=== PATIENT | male | born 1975 | race Hispanic/Latino ===

== ENCOUNTER 2024-09-30 12:08 | Inpatient (IN) | payer BC ==
[~2024-09-30] VITALS: Ht 172.7 cm; Wt 100.0 kg
[~2024-09-30 12:08] MED LIST: AMLO-258 PO; AMOX1TAB16 PO; ASPI-1443 PO; ATOR40TA69 PO; CLOP-31 PO; LISI20TA24 PO; MECL-226 PO; ONDA-243 PO
--- NOTE | 2024-09-30 12:25 | EKG ---
[facility] Test Date: 2024-09-30 Test Time: 12:21:51 Pat Name: ALEX DAVEY Department: ED Room: Gender: M Show Design Supervisor: [id number] : 1975 Requested By: ANANTH HOOK Order Number: [id number] Reading MD: Akil Russell Measurements Intervals Wendel Rate: 69 P: 65 SC: 150 QRS: 42 QRSD: 114 T: 15 QT: 382 QTc: 409 Interpretive Statements Sinus rhythm Inferior infarct, old Compared to ECG 07/08/2024 12:56:03 Myocardial infarct finding now present Electronically Signed On 09-30-2024 14:20:15 TOOL FILER HAND by Akil Russell Please click the below link to view image of tracing.
--- NOTE | 2024-09-30 13:27 | HMCIMG ---
Exam Type: CHEST 1VW Clinical Information: VERTIGO Comparison: None Findings: The lungs are clear of infiltrates. The heart is normal in size. The bony and soft tissue structures of the chest are unremarkable. Impression: Clear lungs.
[2024-09-30] MEDS: LACTATED RINGERS 1000ML 1,000 ML IV ONE (13:41)
[2024-09-30 13:47] LABS: BASOPHILS # (AUTO) 0.03 K/uL (0.00-0.20); BASOPHILS % (AUTO) 0.2 % (0.0-5.0); EOSINOPHILS # (AUTO) 0.04 K/uL (0.00-0.70); EOSINOPHILS % (AUTO) 0.3 % (0.0-8.0); IMMATURE GRANULOCYTE ABSOLUTE 0.06 K/uL (0-1); LYMPHOCYTES # (AUTO) 1.7 K/uL (1.0-4.8); LYMPHOCYTES % (AUTO) 11.9 % (21.0-51.0); MEAN CORPUSCULAR HEMOGLOBIN 30.5 pg (27.0-33.0); MEAN CORPUSCULAR HGB CONC 32.7 g/dL (32.0-36.0); MEAN CORPUSCULAR VOLUME 93.4 fL (79-99); MONOCYTES % (AUTO) 7.3 % (3.0-13.0); NEUTROPHILS # (AUTO) 11.4 K/uL (1.8-7.7); NEUTROPHILS % (AUTO) 79.9 % (40.0-77.0); PLATELET COUNT (AUTO) 325 K/uL (130-400); RED BLOOD CELL COUNT(AUTO) 4.82 MIL/uL (4.50-6.20); WHITE BLOOD COUNT (AUTO) 14.3 K/uL (4.8-10.8)
[2024-09-30 13:57] LABS: INR 0.94 (0.85-1.15); PROTHROMBIN TIME 10.6 SEC (9.6-11.6)
[2024-09-30 13:59] LABS: PARTIAL THROMBOPLASTIN TIME 28.5 SEC (26.3-35.5)
[2024-09-30 14:01] LABS: CREATININE 0.9 mg/dL (0.5-1.3)
[2024-09-30 14:06] LABS: MAGNESIUM 2.1 mg/dL (1.80-2.40)
[2024-09-30 14:18] LABS: B-TYPE NATRIURETIC PEPTIDE 11 pg/mL (0-100)
[2024-09-30] MEDS: mecliZINE HCL 25 MG TABLET PO ONE (14:37)
[2024-09-30 15:02] LABS: APPEARANCE,URINE CLEAR (CLEAR); BILIRUBIN,URINE NEGATIVE (NEGATIVE); COLOR,URINE COLORLESS (YELLOW); GLUCOSE, URINE (UA) NEGATIVE (NEGATIVE); KETONES,URINE NEGATIVE (NEGATIVE); LEUKOCYTE ESTERASE ,URINE NEGATIVE Leu/uL (NEGATIVE); NITRATE,URINE NEGATIVE (NEGATIVE); OCCULT BLOOD,URINE NEGATIVE (NEGATIVE); PH,URINE 6.5 (5.0-8.0); PROTEIN,URINE NEGATIVE (NEGATIVE); UROBILINOGEN,URINE 0.2 mg/dL (0.2-1.0)
[2024-09-30 15:13] LABS: ADD UA MICROSCOPIC NO
--- NOTE | 2024-09-30 16:40 | HMCIMG ---
CT HEAD/BRAIN W/O CONTRAST INDICATION: VERTIGO TECHNIQUE: CT HEAD/BRAIN W/O CONTRAST. CT was performed with one or more of the following dose reduction techniques: Automated exposure control, adjustment of the mA and/or kV according to the patient's size, or use of the iterative reconstruction technique. Comparison: None FINDINGS: The ventricles and extra ventricular CSF spaces are within normal limits. No mass effect, midline shift or herniation. No extra axial collection. No acute intracranial bleed. The visualized paranasal sinuses and mastoid air cells are normally aerated. IMPRESSION: No acute intracranial findings.
--- NOTE | 2024-09-30 17:08 | ERN ---
General Chief Complaint: Dizzy/Light Headed Stated Complaint: DIZZY,MULTIPLE COMPLAINTS Source: patient, family History of Present Illness Initial Comments PATIENT IS A 49-YEAR-OLD MALE COMING IN TO BE EVALUATED FOR VERTIGO. PATIENT STATES THAT HE HAD A RECENT HISTORY OF A CVA THREE MONTHS AGO. STATES THAT HE IMPROVED SIGNIFICANTLY BUT THEN STARTED HAVING URI SYMPTOMS. HE STATES HE HAS BEEN SEEN BY HIS PRIMARY CARE PHYSICIAN AND AN ENT WAS DIAGNOSED WITH RIGHT MAXILLARY SINUS INFECTION AND WAS PENDING A PROCEDURE. HE STATES IT WAS THREE DAYS AGO HIS SYMPTOMS STARTED GETTING WORSE. HE WAS HERE FOR FURTHER EVALUATION. Allergies: Coded Allergies: No Known Drug Allergies (Unverified Allergy, Unknown, 07/08/24) Home Meds Active Scripts Amoxicillin/Potassium Clav (Amox Tr-K Clv 875-125 mg Tab) 875 Mg-125 Mg Tablet, 1 TAB PO BID for 7 Days, #14 TAB 0 Refills Prov:RYLAND GARCIA [employer] SUPERINTENDENT 07/09/24 Amlodipine Besylate (Amlodipine Besylate) 10 Mg Tablet, 1 TAB PO DAILY for 30 Days, #30 TAB 0 Refills Prov:RYLAND GARCIA [employer] SUPERINTENDENT 07/09/24 Lisinopril (Lisinopril) 20 Mg Tablet, 1 TAB PO HS for 30 Days, #30 TAB 0 Refills Prov:RYLAND GARCIA [employer] SUPERINTENDENT 07/09/24 Atorvastatin Calcium (LIPITOR) 80 Mg Tablet, 1 TAB PO HS for 90 Days, #90 TAB 0 Refills Prov:RYLAND GARCIA [employer] SUPERINTENDENT 07/09/24 Aspirin (Aspirin EC) 81 Mg Tablet.dr, 1 TAB PO DAILY for 90 Days, #90 TAB 0 Refills Prov:RYLAND GARCIA COMMAND [employer] SUPERINTENDENT 07/09/24 Clopidogrel Bisulfate (Plavix) 75 Mg Tablet, 1 TAB PO DAILY for 90 Days, #90 TAB 0 Refills Prov:RYLAND GARCIA [employer] SUPERINTENDENT 07/09/24 Reported Medications Meclizine HCl (Meclizine HCl) 12.5 Mg Tablet, 25 MG PO TIDP for dizziness, TAB 07/08/24 Ondansetron (Ondansetron Odt) 4 Mg Tab.rapdis, 1 TAB PO Q4HPRN PRN for nausea/vomiting for 4 Days, #16 TAB 0 Refills 11/23/24 Past Medical History Past Medical History: Anxiety, High Cholesterol, Heart Disease, Hypertension, Stroke Past Surgical History: Tonsillectomy Surgical History Other: BILAT ACL REPAIR. BONE MARROW DONOR ROS Dictation CONSTITUTIONAL: NO CHILLS, NO FEVER, NO WEAKNESS, NO DIAPHORESIS, NO MALAISE. HEAD/FACE: NO SIGNS OF TRAUMA. EENT: NO EYE PAIN, NO BLURRED VISION, NO TEARING, NO DOUBLE VISION, NO EAR PAIN, NO EAR DISCHARGE, NO NOSE PAIN, NO NASAL CONGESTION, NO THROAT PAIN, NO THROAT SWELLING, NO MOUTH PAIN. RESPIRATORY: NO COUGH, NO ORTHOPNEA, NO SOB, NO STRIDOR, NO WHEEZING. CARDIOVASCULAR: NO CHEST PAIN, NO EDEMA, NO PALPITATIONS, NO SYNCOPE. GASTROINTESTINAL/ABDOMINAL: NO ABDOMINAL PAIN, NO CONSTIPATION, NO DIARRHEA, NO NAUSEA, NO VOMITING. GENITOURINARY: NO ABNORMAL DISCHARGE, NO DYSURIA, NO FREQUENT URINATION, NO HEMATURIA. NO COMPLAINTS OF PAIN IN THE GENITALS. MUSCULOSKELETAL: NO BACK PAIN, NO GOUT, NO JOINT PAIN, NO JOINT SWELLING, NO MUSCLE PAIN, NO MUSCLE STIFFNESS, NO NECK PAIN. INTEGUMENTARY: NO CHANGE IN COLOR, NO CHANGE IN HAIR/NAILS, NO DRYNESS, NO LESION, NO LUMPS, NO RASH. NEUROLOGICAL/PSYCH: NO ANXIETY, NOT DEPRESSED, NO EMOTIONAL PROBLEM, NO HEADACHE, NO NUMBNESS, NO PRE-EXISTING DEFICIT, NO HISTORY OF SEIZURES, NO TREMORS, NO WEAKNESS. HEMATOLOGIC/LYMPHATIC: NOT ANEMIC, NO HISTORY OF BLOOD CLOTS, NO APPARENT BLEEDING, NO BRUISING, GLANDS NOT SWOLLEN. ALL SYSTEMS NEGATIVE, EXCEPT NOTED. Physical Exam Physical Exam Dictation VITAL SIGNS: REVIEWED. GENERAL APPEARANCE: ALERT, ORIENTED X3, NO ACUTE DISTRESS, OBESE. HEAD AND FACE: NON-TRAUMATIC. EYES: PERRL, PINK CONJUNCTIVAS, EYELID NO TRAUMA, ANTERIOR CHAMBER CLEAR. EARS: PINNAS INTACT AND NO SIGNS OF TRAUMA OR ERYTHEMA. EAR CANALS CLEAR AND NO DISCHARGE. TMS NO ERYTHEMA. NOSE: NO DISCHARGE, NO BLEEDING. OROPHARYNX: MOUTH NORMAL, TEETH NO CARIES, TONGUE PINK. PHARYNX CLEAR, NO ERYTHEMA. TONSILS NO EXUDATES, NO ABSCESSES NOTED. MUCOUS MEMBRANE MOIST. NECK: SUPPLE, NON-TENDER, NO THYROMEGALY, NO MASSES, NO JVD, NO BRUITS. BREAST: DEFERRED. CHEST: NO TENDERNESS, NO CREPITUS, NO PARADOXICAL MOVEMENT, NO RETRACTIONS. LUNGS: CLEAR, WELL-VENTILATED, SYMMETRIC, NO RALES, NO WHEEZING, NO RHONCHI, NO STRIDOR, GOOD BREATH SOUNDS BILATERALLY. HEART: REGULAR RATE, REGULAR RHYTHM, NO MURMUR, NO GALLOPS. VASCULAR: NO PERIPHERAL EDEMA. ABDOMEN: SOFT, POSITIVE BOWEL SOUNDS, NONDISTENDED, NO GUARDING, NONTENDER, NO REBOUND, NO MASSES NO HEPATOMEGALY, NO SPLENOMEGALY, NO HUANG'S SIGN, NO HERNIAS. RECTAL: DEFERRED. GENITAL: DEFERRED. NEUROLOGICAL: NORMAL SPEECH, GROSS MOTOR FUNCTION INTACT, GROSS SENSORY FUNCTION INTACT. MUSCULOSKELETAL: NECK NONTENDER, FULL RANGE OF MOTION, BACK NONTENDER, FULL RANGE OF MOTION. EXTREMITIES: NONTENDER, FULL RANGE OF MOTION. SKIN: COLOR PINK, DRY, NO TURGOR, NO RASH, NO LACERATIONS, NO ABRASIONS, NO CONTUSIONS. LYMPHATICS: DEFERRED. Results Laboratory and Microbiology Lab and Micro Result Laboratory Tests Test 09/30/24 13:19 09/30/24 14:43 White Blood Count 14.3 K/uL (4.8-10.8) H Red Blood Count 4.82 MIL/uL (4.50-6.20) Hemoglobin 14.7 g/dL (14.0-18.0) Hematocrit 45.0 % (42-54) Mean Corpuscular Volume 93.4 fL (79-99) Mean Corpuscular Hemoglobin 30.5 pg (27.0-33.0) Mean Corpuscular Hemoglobin Concent 32.7 g/dL (32.0-36.0) Red Cell Distribution Width 13.0 % (11.0-15.5) Platelet Count 325 K/uL (130-400) Mean Platelet Volume 9.4 fL (7.5-10.5) Immature Granulocyte % (Auto) 0.4 % (0-1) Neutrophils (%) (Auto) 79.9 % (40.0-77.0) H Lymphocytes (%) (Auto) 11.9 % (21.0-51.0) L Monocytes (%) (Auto) 7.3 % (3.0-13.0) Eosinophils (%) (Auto) 0.3 % (0.0-8.0) Basophils (%) (Auto) 0.2 % (0.0-5.0) Neutrophils # (Auto) 11.4 K/uL (1.8-7.7) H Lymphocytes # (Auto) 1.7 K/uL (1.0-4.8) Monocytes # (Auto) 1.0 K/uL (0.1-1.0) Eosinophils # (Auto) 0.04 K/uL (0.00-0.70) Basophils # (Auto) 0.03 K/uL (0.00-0.20) Absolute Immature Granulocyte (auto 0.06 K/uL (0-1) Nucleated Red Blood Cells 0.0 % (0.0-0.19) Prothrombin Time 10.6 SEC (9.6-11.6) Prothromb Time International Ratio 0.94 (0.85-1.15) Activated Partial Thromboplast Time 28.5 SEC (26.3-35.5) Sodium Level 139 mmol/L (136-145) Potassium Level 4.0 mmol/L (3.5-5.1) Chloride Level 105 mmol/L (101-111) Carbon Dioxide Level 25 mmol/L (21-32) Blood Urea Nitrogen 14 mg/dL (7-18) Creatinine 0.9 mg/dL (0.5-1.3) Glomerular Filtration Rate Calc 104 mL/min (>90) Random Glucose 117 mg/dL (70-105) H Total Calcium 9.2 mg/dL (8.5-10.1) Magnesium Level 2.10 mg/dL (1.80-2.40) Total Creatine Kinase 217 U/L (21-232) # Troponin I High Sensitivity 4 ng/L (4-75) B-Type Natriuretic Peptide 11 pg/mL (0-100) Urine Color COLORLESS (YELLOW) Urine Appearance CLEAR (CLEAR) Urine pH 6.5 (5.0-8.0) Urine Specific [place] 1.005 (1.001-1.031) Urine Protein NEGATIVE mg/dL (NEGATIVE) Urine Glucose (UA) NEGATIVE mg/dL (NEGATIVE) Urine Ketones NEGATIVE mg/dL (NEGATIVE) Urine Occult Blood NEGATIVE (NEGATIVE) Urine Nitrate NEGATIVE (NEGATIVE) Urine Bilirubin NEGATIVE mg/dL (NEGATIVE) Urine Urobilinogen 0.2 mg/dL (0.2-1.0) Urine Leukocyte Esterase NEGATIVE Rowena/uL EKG/XRAY/US/CT/MRI EKG Comment 09/30/2024 TIME 12:21 P.M. VENTRICULAR RATE [address] WAVE ELEVATION OR DEPRESSION CT Scan Comment [id number] [place] [address] IMAGING REPORT Signed PATIENT: ALEX DAVEY MR#: [id number] : 1975 SEX: M AGE: 49 LOCATION: ED ORDER [id number] STATUS: [facility] ER REPORT#: [id number] SERVICE [id number] REASON: VERTIGO ORDERING PHYSICIAN: ANANTH HOOK MD PROCEDURE: HEAD WO - CT HEAD/BRAIN W/O CONTRAST CT HEAD/BRAIN W/O CONTRAST INDICATION: VERTIGO TECHNIQUE: CT HEAD/BRAIN W/O CONTRAST. CT was performed with one or more of the following dose reduction techniques: Automated exposure control, adjustment of the mA and/or kV according to the patient's size, or use of the iterative reconstruction technique. Comparison: None FINDINGS: The ventricles and extra ventricular CSF spaces are within normal limits. No mass effect, midline shift or herniation. No extra axial collection. No acute intracranial bleed. The visualized paranasal sinuses and mastoid air cells are normally aerated. IMPRESSION: No acute intracranial findings. DICTATED BY: ANSHU SUTTON MD DATE: 09/30/24 1637 ELECTRONICALLY SIGNED BY: ANSHU SUTTON MD DATE: 09/30/24 1640 [facility] MDM: DIFFERENTIAL DIAGNOSIS: VERTIGO, CVA, RATIONALE: TESTS CONSIDERED AND ORDERED SECONDARY TO SHARED DECISION MAKING INCLUDE: LABS, ECG AND RADIOLOGY PREVIOUS OUTSIDE RECORDS REVIEWED: OLD ER VISITS. RISK OF COMPLICATION AND/OR MORBIDITY OR MORTALITY OF PATIENT MANAGEMENT: NONE MEDICATIONS-PER MEDICATION RECONCILIATION NEED FOR HOSPITALIZATION: PATIENT DOES MEET CRITERIA FOR HOSPITALIZATION. NEED FOR EMERGENCY MAJOR/MINOR SURGERY: NO THERE ARE NO SOCIAL CONCERNS WITH THIS PATIENT. PRESCRIPTION DRUG MANAGEMENT PRESCRIPTIONS WILL INCLUDE SYMPTOMATIC CARE PATIENT'S PRIOR EXTERNAL MEDICAL RECORDS FROM OTHER ER VISITS WERE REVIEWED BY ME INDICATED. PRIOR TESTING AND RESULTS FROM PREVIOUS VISITS WERE REVIEWED. PRIOR TESTS WERE TAKEN INTO ACCOUNT WITH MEDICAL DECISION MAKING AND RESOURCE UTILIZATION, INDEPENDENT HISTORIAN/HISTORIANS WERE USED TO OBTAIN COMPLETE MEDICAL HISTORY. I INDEPENDENTLY INTERPRETED THE TEST THAT WERE PERFORMED, RESULTS WERE REVIEWED BY ME AND CONSIDERED FINDINGS ON RADIOLOGY IF ORDERED. MEDICAL MANAGEMENT AND EXAMINATION INTERPRETATION DISCUSSIONS WERE HAD BY ME WITH OTHER QUALIFIED HEALTHCARE PROFESSIONALS INDICATED FOR THE PATIENT'S CARE. SHE WILL BE ADMITTED UNDER THE CARE OF HOSPITALIST GROUP FOR ONGOING MANAGEMENT. ED Course Orders Procedure Category Date Status Time Cbc With Differential LAB 09/30/24 Complete 12:13 Prothrombin Time With LAB 09/30/24 Complete INR 12:13 B-Type Natriuretic LAB 09/30/24 Complete Peptide 12:13 Chest 1vw RAD 09/30/24 Resulted 12:13 12 Lead Ekg Tracing- EKG 09/30/24 Resulted Technical 12:13 Lactated Ringers PHA 09/30/24 Complete 1000ml (Lactated 12:30 Magnesium LAB 09/30/24 Complete 12:13 Creatine Kinase, Total LAB 09/30/24 Complete 12:13 Troponin I High LAB 09/30/24 Complete Sensitivity 12:13 Urinalysis Profile LAB 09/30/24 Complete 12:13 Partial LAB 09/30/24 Complete Thromboplastin Time 12:13 Basic Metabolic Panel LAB 09/30/24 Complete 12:13 Meclizine Hcl 25 Mg PHA 09/30/24 Complete (Antivert 25 Mg) 14:30 Ct Head/Brain W/O CT 09/30/24 Resulted Contrast 15:45 Current Medications Medications (Trade) Dose Ordered Sig/Romero Route PRN Reason Start Time Stop Time Status Last Admin Dose Admin Lactated Ringer's 1,000 ml @ 0 mls/hr ONCE ONCE IV 09/30/24 12:30 09/30/24 12:31 DC 09/30/24 13:41 Meclizine HCl (ANTIvert 25 mg) 25 mg ONCE ONCE PO 09/30/24 14:30 09/30/24 14:31 DC 09/30/24 14:37 Vital Signs Date Time Temp Pulse Resp B/P (MAP) Pulse Ox O2 Delivery O2 Flow Rate FiO2 09/30/24 15:30 97.9 68 18 109/65 96 Room Air* 0 21 09/30/24 14:30 97.9 71 18 118/62 96 Room Air* 0 21 09/30/24 13:30 71 18 109/51 98 Room Air* 0 21 09/30/24 12:16 97.9 85 16 118/76 96 Room Air 0 Critical Care Note Comments CRITICAL CARE PROCEDURE NOTE AUTHORIZED AND PERFORMED BY: TOTAL CRITICAL CARE TIME: APPROXIMATELY 36 MINUTES DUE TO A HIGH PROBABILITY OF CLINICALLY SIGNIFICANT, LIFE THREATENING DETERIORATION, THE PATIENT REQUIRED MY HIGHEST LEVEL OF PREPAREDNESS TO INTERVENE EMERGENTLY AND I PERSONALLY SPENT THIS CRITICAL CARE TIME DIRECTLY AND PERSONALLY MANAGING THE PATIENT. THIS CRITICAL CARE TIME INCLUDED OBTAINING A HISTORY; EXAMINING THE PATIENT; PULSE OXIMETRY; ORDERING AND REVIEW OF STUDIES; ARRANGING URGENT TREATMENT WITH DEVELOPMENT OF A MANAGEMENT PLAN; EVALUATION OF PATIENT'S RESPONSE TO TREATMENT; FREQUENT REASSESSMENT; AND, DISCUSSIONS WITH OTHER PROVIDERS. THIS CRITICAL CARE TIME WAS PERFORMED TO ASSESS AND MANAGE THE HIGH PROBABILITY OF IMMINENT, LIFE-THREATENING DETERIORATION THAT COULD RESULT IN MULTI-ORGAN FAILURE. IT WAS EXCLUSIVE OF SEPARATELY BILLABLE PROCEDURES AND TREATING OTHER PATIENTS AND TEACHING TIME. PLEASE SEE MDM SECTION AND THE REST OF THE NOTE FOR FURTHER INFORMATION ON PATIENT ASSESSMENT AND TREATMENT. DX & DISP Disposition: Inpatient Decision to Admit Time: 17:07 Departure Impression: Primary Impression: Vertiginous syndrome Additional Impressions: History of CVA (cerebrovascular accident), Sinusitis Condition: Stable Referrals: SELF,REFERRAL (PCP) ANANTH HOOK MD Sep 30, 2024 17:08
--- NOTE | 2024-09-30 17:14 | NUR ---
does not have medications with him at this time
[2024-09-30] MEDS: 0.9%NACL 1000ML 1,000 ML IV SCH (18:15)
[2024-09-30] MEDS: PANTOPrazole 40 MG TAB DR PO SCH (18:17)
[2024-09-30] MEDS: CEFTRIAXONE 2GM VIAL IVPB SCH (18:17)
--- NOTE | 2024-09-30 18:26 | NUR ---
per Dr. Alan, Dr. Rosales wants MRI done STAT and if neg, there is no need to see pt tonight
[2024-09-30] MEDS ORDERED: guaiFENesin-DM 200/20MG 10ML PO PRN ×2 (18:30→20:00)
[2024-09-30] MEDS ORDERED: hydrALAZine 20MG/ML VIAL IV PRN (18:30)
--- NOTE | 2024-09-30 19:05 | HMCIMG ---
CT CHEST W/O CONTRAST HISTORY: PERSISTENT NON RESOLVING COUGH X 2 WEEKS WITH BRONCHITIS TECHNIQUE: CT CHEST W/O CONTRAST. Coronal and sagittal reformats were obtained. CT was performed with one or more of the following dose reduction techniques: Automated exposure control, adjustment of the mA and/or kV according to the patient's size, or use of the iterative reconstruction technique. FINDINGS: The noncontrast nature this study limits evaluation of the mediastinal structures. Mild airspace consolidation in the bilateral lower lobe and right middle lobe concerning for pneumonia. Bronchiectasis seen in the right lower lobe. There is no pleural effusion or pneumothorax. The heart is normal in size. No pericardial effusion. The aorta is normal in caliber. No bulky mediastinal or hilar lymphadenopathy is seen. There is no acute findings in the visualized upper abdomen. No acute osseous injury is identified. IMPRESSION: Mild airspace consolidation in the bilateral lower lobe and right middle lobe concerning for pneumonia. Bronchiectasis seen in the right lower lobe. There is no pleural effusion or pneumothorax.
[2024-09-30 19:26] LABS: RAPID GROUP A STREP negative (NEGATIVE)
[2024-09-30 19:30] LABS: SARS-CoV-2, RNA, NAAT NEGATIVE SARS CoV-2 (NEGATIVE)
--- NOTE | 2024-09-30 19:31 | HMCIMG ---
MR BRAIN WO CON HISTORY: HX OF RIGHT CEREBELLAR CVA (07/09), 2 DAYS OF PERSISTENT DIZZINESS, R/O CVA TECHNIQUE: Multiplanar multisequence MRI of the brain was performed without contrast. FINDINGS: No restricted diffusion seen to suggest acute infarct. The ventricles and extra ventricular CSF spaces are within normal limits. No mass effect, midline shift or herniation. No extra axial collection. No acute intracranial bleed. Retention cyst/polyps in the right maxillary sinus. IMPRESSION: No acute intracranial findings.
[2024-09-30 19:35] LABS: INFLUENZA TYPE A Negative For Type A (NEGATIVE); INFLUENZA TYPE B Negative For Type B (NEGATIVE)
[2024-09-30 20:39] VITALS: PULSE 63; RESP 18; O2SAT 97
[2024-09-30] MEDS: BUDESONIDE 0.5 MG/2 ML INH IH SCH (20:39)
[2024-09-30] MEDS: SODIUM CHLORIDE 3% FOR INHALATION 4 ML/AMP VIAL.NEB IH ONE (20:46)
[2024-09-30] MEDS: DOXYCYCLINE 100MG+NS 250ML 250 ML IV SCH (20:51)
--- NOTE | 2024-09-30 21:04 | HP ---
[facility] HISTORY AND PHYSICAL Date of Service: Sep 30, 2024 Time of Service: 20:51 HISTORY OF PRESENT ILLNESS: Date of service: 09/30/2024 49-year-old male with underlying history of hypertension, hyperlipidemia, prior history of right cerebellar stroke on 06/2024, history of left vertebral artery stenosis who presented to the ER for further evaluation of two days of persistent dizziness. Patient states that he has been following up with his PCP and he has been having symptoms of productive cough for the past two weeks. He has been on outpatient therapy with Z-Rene and recently saw his PCP again where he received intramuscular shot of antibiotics and oral prednisone. He continues to do poorly with symptoms of bronchitis. Yesterday afternoon, while at work, patient states that he started experiencing symptoms of dizziness. Symptoms became more pronounced stated today and patient reports having unsteady gait with ambulation where he had to hold on to the dong for ambulation. Symptoms were not as severe compared to his previous history of stroke in 06/2024 with vertigo. Patient reports that he has a history of mild chronic vertigo since the stroke. He has been also followed by ENT as outpatient for management of right maxillary sinusitis. Patient is being followed They have suggested surgical treatment for management of sinusitis. Patient states that he was worried about possible stroke given persistent symptoms of dizziness and he presented to the ER for further evaluation. On presentation to the hospital, patient was noted to be afebrile and hemodynamically stable. [place] [address], hemoglobin of 14.7, platelet count of 902427. BMP remarkable for sodium 139, potassium 4.0, creatinine of 0.9. Chest x-ray showed no significant infiltrates. MRI of the brain was obtained which showed no acute stroke. Patient will be admitted for further management of nonresolving bronchitis with suspected community-acquired pneumonia. Patient likely has recrudescence of stroke-like symptoms from underlying pneumonia, dehydration and we will also undergo further workup with MRI brain to rule out acute CVA. Plan of care was discussed with patient and at bedside. REVIEW OF SYSTEMS: CONSTITUTIONAL: Denies fevers, chills, or night sweats. No unintentional weight loss reported. NEUROLOGICAL: Denies headache, amaurosis fugax, motor weakness, sensory deficit, vertigo/spinning sensation, gait abnormalities, or tremors. ENT: No hearing loss, otalgia, otorrhea, rhinitis, rhinorrhea, hoarseness, or sore throat. CARDIOVASCULAR: Denies any exertional angina, dyspnea on exertion, orthopnea, paroxysmal nocturnal dyspnea, palpitations, life-threatening arrhythmias, claudication. PULMONARY: Persistent nonresolving cough, shortness of breath SLEEP: Denies morning headaches, daytime somnolence or napping. Denies difficulty falling asleep, staying asleep, waking from sleep. Denies knowledge of snoring. GASTROINTESTINAL: Denies any type of dysphagia to either liquids or solids. Denies nausea, vomiting, pyrosis, early satiety, abdominal pain, diarrhea, constipation, or changes in stool consistency or caliber. Denies coffee-ground emesis, hematemesis, hematochezia, or melanotic stools. GENITOURINARY: Denies frequency, urgency, nocturia, hematuria or incontinence (Storage/Irritative symptoms.) Low urinary stream, straining to void, urinary intermittency or hesitancy, splitting of the voiding stream, terminal dribbling. ENDOCRINOLOGIC: Denies polyuria, polydipsia, polyphagia or heat/cold intolerances. HEMATOLOGIC: Denies thrombophilia/previous clots, or coagulopathy/bleeding disorders. ONCOLOGIC: Denies personal history of malignancy. DERMATOLOGIC: Denies rashes or pruritus. PSYCHIATRIC: Denies any suicidal or homicidal ideation. Denies hallucinations. PAST MEDICAL HISTORY: Hypertension, hyperlipidemia, history of right cerebellar stroke on 07/09, history of left vertebral artery stenosis per Neurology evaluation on 07/09 PAST SURGICAL HISTORY: Reports having history of tonsillectomy, bilateral ACL repairs of both knees previously PAST SOCIAL HISTORY: Denies smoking, drinks socially, denies illicit drug use, patient works as a mechanical maintenance supervisor FAMILY HISTORY: Family history of heart disease, hypertension in father and mother Allergies: Patient denies known drug allergies Medications: Reports being on amlodipine 10 mg daily, aspirin 81 mg daily, Plavix 75 mg daily, lisinopril 20 mg at bedtime, Lipitor 40 mg daily Coded Allergies: No Known Drug Allergies (Unverified Allergy, Unknown, 07/08/24) PHYSICAL EXAM GENERAL APPEARANCE: The patient is awake, alert, and oriented, in no acute cardiopulmonary distress. NEUROLOGICAL: Cranial nerves II-XII grossly intact. Motor is 5/5 in bilateral upper and lower extremities proximal to distal. No sensory deficits. HEENT: Face is symmetric. Pupils are equal and reactive. Extraocular movements are intact. NECK: Supple. No JVD. No thyromegaly. No submental, submandibular, pre- /postauricular, occipital or supraclavicular lymphadenopathy. CHEST: Normal chest expansion. No Telemetry. LUNGS: Absence of any rales, rhonchi or any wheezing. CARDIOVASCULAR: Regular. S1 and S2 normal. No appreciable rubs, murmurs or gallops. ABDOMEN: Soft, nontender, and nondistended. There is no rebound, voluntary guarding, or rigidity. : Deferred. No Rayo. EXTREMITIES: Non-edematous and not cyanotic. No clubbing. Good capillary refill. SKIN: No skin breakdown. Vital Sign (Last 24 Hours) 09/30/24 09/30/24 18:30 18:38 Temp 97.9 B/P (MAP) 125/71 Pulse Ox 96 LABS: Laboratory: Test 09/30/24 18:10 09/30/24 14:43 09/30/24 13:19 Range/Units Influenza Type A Antigen Negative For Type A NEGATIVE Influenza Type B Antigen Negative For Type B NEGATIVE SARS-CoV-2, RNA, NAAT NEGATIVE SARS CoV-2 NEGATIVE Group A Streptococcus Rapid negative NEGATIVE Urine Color COLORLESS YELLOW Urine Appearance CLEAR CLEAR Urine pH 6.5 5.0-8.0 Urine Specific [place] 1.005 1.001-1.031 Urine Protein NEGATIVE NEGATIVE mg/dL Urine Glucose (UA) NEGATIVE NEGATIVE mg/dL Urine Ketones NEGATIVE NEGATIVE mg/dL Urine Occult Blood NEGATIVE NEGATIVE Urine Nitrate NEGATIVE NEGATIVE Urine Bilirubin NEGATIVE NEGATIVE mg/dL Urine Urobilinogen 0.2 0.2-1.0 mg/dL Urine Leukocyte Esterase NEGATIVE NEGATIVE [place]/uL White Blood Count 14.3 H 4.8-10.8 K/uL Red Blood Count 4.82 4.50-6.20 MIL/uL Hemoglobin 14.7 14.0-18.0 g/dL Hematocrit 45.0 42-54 % Mean Corpuscular Volume 93.4 79-99 fL Mean Corpuscular Hemoglobin 30.5 27.0-33.0 pg Mean Corpuscular Hemoglobin Concent 32.7 32.0-36.0 g/dL Red Cell Distribution Width 13.0 11.0-15.5 % Platelet Count 325 130-400 K/uL Mean Platelet Volume 9.4 7.5-10.5 fL Immature Granulocyte % (Auto) 0.4 0-1 % Neutrophils (%) (Auto) 79.9 H 40.0-77.0 % Lymphocytes (%) (Auto) 11.9 L 21.0-51.0 % Monocytes (%) (Auto) 7.3 3.0-13.0 % Eosinophils (%) (Auto) 0.3 0.0-8.0 % Basophils (%) (Auto) 0.2 0.0-5.0 % Neutrophils # (Auto) 11.4 H 1.8-7.7 K/uL Lymphocytes # (Auto) 1.7 1.0-4.8 K/uL Monocytes # (Auto) 1.0 0.1-1.0 K/uL Eosinophils # (Auto) 0.04 0.00-0.70 K/uL Basophils # (Auto) 0.03 0.00-0.20 K/uL Absolute Immature Granulocyte (auto 0.06 0-1 K/uL Nucleated Red Blood Cells 0.0 0.0-0.19 % Erythrocyte Sedimentation Rate 17 0-20 MM/HR Prothrombin Time 10.6 9.6-11.6 SEC Prothromb Time International Ratio 0.94 0.85-1.15 Activated Partial Thromboplast Time 28.5 26.3-35.5 SEC Sodium Level 139 136-145 mmol/L Potassium Level 4.0 3.5-5.1 mmol/L Chloride Level 105 101-111 mmol/L Carbon Dioxide Level 25 21-32 mmol/L Blood Urea Nitrogen 14 7-18 mg/dL Creatinine 0.9 0.5-1.3 mg/dL Glomerular Filtration Rate Calc 104 >90 mL/min Random Glucose 117 H 70-105 mg/dL Total Calcium 9.2 8.5-10.1 mg/dL Magnesium Level 2.10 1.80-2.40 mg/dL Total Creatine Kinase 217 # 21-232 U/L Troponin I High Sensitivity 4 4-75 ng/L C-Reactive Protein, Quantitative 17.40 H 0.5-3.0 mg/L B-Type Natriuretic Peptide 11 0-100 pg/mL Procalcitonin < 0.05 L 0.05-0.5 ng/mL Current Medications Medications (Trade) Dose Ordered Sig/Romero Route PRN Reason Start Time Stop Time Status Last Admin Dose Admin Albuterol (DUOneb) 1 udvial Q6H PRN IH SHORTNESS OF BREATH 09/30/24 18:30 10/30/24 18:29 Aspirin (Aspirin 81mg Chew Tab) 81 mg DAILY PO 10/01/24 09:00 10/31/24 08:59 Budesonide (Pulmicort 0.5 Mg/2ml) 0.5 mg BIDRESP IH 09/30/24 18:30 10/30/24 18:29 09/30/24 20:39 0.5 MG Ceftriaxone Sodium (Rocephin 2gm Inj) 2 gm Q24H IVPB 09/30/24 18:30 10/10/24 18:29 09/30/24 18:17 2 GM Clopidogrel Bisulfate (plaVIX 75MG) 75 mg DAILY PO 10/01/24 09:00 10/31/24 08:59 Doxycycline Hyclate 250 ml @ 125 mls/hr Q12H IV 09/30/24 20:00 10/10/24 19:59 Guaifenesin/ Dextromethorphan (RobiTUSSin DM 200/20MG 10ML) 10 ml Q6H PRN PO COUGH 09/30/24 18:30 09/30/24 19:45 DC Guaifenesin/ Dextromethorphan (RobiTUSSin DM 200/20MG 10ML) 10 ml Q6H PRN PO COUGH 09/30/24 20:00 10/30/24 19:59 Hydralazine HCl (APRESOLine 20MG INJ) 5 mg Q6H PRN IV ADMINISTER FOR SBP > 160 09/30/24 18:30 10/30/24 18:29 Pantoprazole Sodium (PROTonix 40MG TAB) 40 mg Q24H PO 09/30/24 18:30 10/30/24 18:29 09/30/24 18:17 40 MG Sodium Chloride 1,000 ml @ 80 mls/hr [id number] IV 09/30/24 18:00 10/30/24 17:59 09/30/24 18:15 80 MLS/HR DIAGNOSTICS / RADIOLOGY: SERVICE 1213 REASON: VERTIGO ORDERING PHYSICIAN: ANANTH HOOK MD PROCEDURE: CXR1VW - CHEST 1VW Exam Type: CHEST 1VW Clinical Information: VERTIGO Comparison: None Findings: The lungs are clear of infiltrates. The heart is normal in size. The bony and soft tissue structures of the chest are unremarkable. Impression: Clear lungs. DICTATED BY: ZEINA FONTANA MD DATE: 09/30/241323 ELECTRONICALLY SIGNED BY: ZEINA FONTANA MD DATE: 09/30/241326 ASSESSMENT: Bilateral multifocal community-acquired pneumonia, POA Nonresolving acute bronchitis, POA Failure of outpatient antibiotic therapy, POA Recrudescence of stroke symptoms secondary to underlying pneumonia, POA Prior history of right cerebellar CVA, PO, 06/2024 History of left vertebral artery stenosis, 06/2024, per Dr. Rosales interpretation, POA Hypertension, POA Hyperlipidemia, POA History of dual antiplatelet therapy as outpatient, POA PLAN: Patient will be admitted to cardiac telemetry floor CT chest on further evaluation shows bibasilar bilateral lobe community-acquired pneumonia, we will obtain respiratory culture, flu and COVID testing We will start patient on IV antibiotics with Rocephin/doxycycline, patient reports that he received outpatient Z-Rene therapy and continues to have significant bronchitis Blood pressure remains in the 100s/60s tonight, we will hold lisinopril tonight and resume amlodipine 10 mg daily, orthostatic vitals were noted to be negative Avoid any episodes of hypotension given underlying history of left vertebral artery stenosis We will start patient on IV hydration with NS at 75 mL/hour We will obtain MRI brain tonight to rule out acute CVA, patient's case was discussed with Dr. Rosales with Neurology Patient will continue with antiplatelet therapy with aspirin and Plavix We will have pulmonology evaluate this patient as well All labs will be repeated in the morning Anticipate hospitalization for at least 48-72 hours pending respiratory culture Date of service: 09/30/2024 Plan of care was discussed with patient and at bedside, Satya Alan MD Advanced Care Planning: Which of the following were discussed: Hospice care: Yes __ No _X_ Therapeutic options: Yes _X_ No __ Advance directives: Yes _X_ No __ Other discussions: Discussed with who?: Patient Voluntary nature of this service was explained to the patient? Yes _x_ No __ Amount of time spent: 20 minutes SATYA ALAN MD Sep 30, 2024 21:04
--- NOTE | 2024-09-30 23:26 | NUR ---
PT CARE ASSUMED AT THIS TIME
[2024-10-01] VITALS (10 sets, daily range): BP systolic 118–128; BP diastolic 78–85; PULSE 71–81; RESP 17–20; TEMP 98–98.2; O2SAT 97–99
--- NOTE | 2024-10-01 07:14 | NUR ---
REPORT GIVEN TO ERLINDA TELLEZ AT THIS TIME
[2024-10-01 07:25] LABS: BASOPHILS # (AUTO) 0.04 K/uL (0.00-0.20); BASOPHILS % (AUTO) 0.4 % (0.0-5.0); EOSINOPHILS # (AUTO) 0.06 K/uL (0.00-0.70); EOSINOPHILS % (AUTO) 0.6 % (0.0-8.0); HEMATOCRIT 41.6 % (42-54); IMMATURE GRANULOCYTE ABSOLUTE 0.04 K/uL (0-1); LYMPHOCYTES # (AUTO) 2.4 K/uL (1.0-4.8); LYMPHOCYTES % (AUTO) 22.3 % (21.0-51.0); MEAN CORPUSCULAR HEMOGLOBIN 30.5 pg (27.0-33.0); MEAN CORPUSCULAR HGB CONC 33.2 g/dL (32.0-36.0); MEAN CORPUSCULAR VOLUME 91.8 fL (79-99); MONOCYTES # (AUTO) 1.1 K/uL (0.1-1.0); MONOCYTES % (AUTO) 9.8 % (3.0-13.0); NEUTROPHILS # (AUTO) 7.2 K/uL (1.8-7.7); NEUTROPHILS % (AUTO) 66.5 % (40.0-77.0); PLATELET COUNT (AUTO) 306 K/uL (130-400); RED BLOOD CELL COUNT(AUTO) 4.53 MIL/uL (4.50-6.20); RED CELL DISTRIBUTION WIDTH 13.3 % (11.0-15.5); WHITE BLOOD COUNT (AUTO) 10.8 K/uL (4.8-10.8)
[2024-10-01 07:42] LABS: BILIRUBIN,TOTAL 0.2 mg/dL (0.2-1.0); CREATININE 0.9 mg/dL (0.5-1.3); POTASSIUM 4.3 mmol/L (3.5-5.1); TOTAL PROTEIN, SERUM 6.5 g/dL (6.0-8.3)
[2024-10-01] MEDS: amLODIPine 5 MG TAB PO SCH (08:14)
[2024-10-01] MEDS: cloPIDOgrel 75MG TAB PO SCH (08:14)
[2024-10-01] MEDS: ASPIRIN 81MG CHEW TAB PO SCH (08:15)
--- NOTE | 2024-10-01 10:20 | PN ---
[facility] PROGRESS NOTE Date of Service: Oct 01, 2024 Time of Service: 10:20 SUBJECTIVE: [ ] 49-year-old male with a past medical history of essential hypertension, hyperlipidemia, history of right cerebellar stroke on 06/2024, history of left vertebral artery stenosis was admitted to the cardiac telemetry floor with diagnosis of bilateral multifocal community-acquired pneumonia, none resolving acute bronchitis, failure of outpatient antibiotic therapy and recrudescence of stroke symptoms. Today on bedside evaluation patient was found awake alert and oriented x 3. The power chart reviewed, vital signs, laboratory tests, imaging test and medications have been reviewed. Vitals are stable, afebrile, satting 97% on room air. Leukocytosis resolved, CBC and CMP are stable. Pending respiratory cultures. Reviewed images with patient and patient's , no acute findings. Neurologist was consulted secondary to patient's prior CVA and dizziness. From Neurology standpoint patient is stable, signing off. Continue home medications. Continue IV Rocephin and doxycycline. Starting antihistamines and Flonase. We will follow human resources trainer's recommendations. Patient is a start work with physical therapy for safe discharge planning. REVIEW OF SYSTEMS: CONSTITUTIONAL: Denies fevers, chills, or night sweats. No unintentional weight loss reported. NEUROLOGICAL: Denies headache, amaurosis fugax, motor weakness, sensory deficit, vertigo/spinning sensation, gait abnormalities, or tremors. ENT: No hearing loss, otalgia, otorrhea, rhinitis, rhinorrhea, hoarseness, or sore throat. CARDIOVASCULAR: Denies any exertional angina, dyspnea on exertion, orthopnea, paroxysmal nocturnal dyspnea, palpitations, life-threatening arrhythmias, claudication. PULMONARY: Persistent nonresolving cough, shortness of breath SLEEP: Denies morning headaches, daytime somnolence or napping. Denies difficulty falling asleep, staying asleep, waking from sleep. Denies knowledge of snoring. GASTROINTESTINAL: Denies any type of dysphagia to either liquids or solids. Denies nausea, vomiting, pyrosis, early satiety, abdominal pain, diarrhea, constipation, or changes in stool consistency or caliber. Denies coffee-ground emesis, hematemesis, hematochezia, or melanotic stools. GENITOURINARY: Denies frequency, urgency, nocturia, hematuria or incontinence (Storage/Irritative symptoms.) Low urinary stream, straining to void, urinary intermittency or hesitancy, splitting of the voiding stream, terminal dribbling. ENDOCRINOLOGIC: Denies polyuria, polydipsia, polyphagia or heat/cold intoleran adelaida. HEMATOLOGIC: Denies thrombophilia/previous clots, or coagulopathy/bleeding disorders. ONCOLOGIC: Denies personal history of malignancy. DERMATOLOGIC: Denies rashes or pruritus. PSYCHIATRIC: Denies any suicidal or homicidal ideation. Denies hallucinations. PHYSICAL EXAM GENERAL APPEARANCE: The patient is awake, alert, and oriented, in no acute cardiopulmonary distress. NEUROLOGICAL: Cranial nerves II-XII grossly intact. Motor is 5/5 in bilateral upper and lower extremities proximal to distal. No sensory deficits. HEENT: Face is symmetric. Pupils are equal and reactive. Extraocular movements are intact. NECK: Supple. No JVD. No thyromegaly. No submental, submandibular, pre- /postauricular, occipital or supraclavicular lymphadenopathy. CHEST: Normal chest expansion. No Telemetry. LUNGS: Absence of any rales, rhonchi or any wheezing. CARDIOVASCULAR: Regular. S1 and S2 normal. No appreciable rubs, murmurs or gallops. ABDOMEN: Soft, nontender, and nondistended. There is no rebound, voluntary guarding, or rigidity. : Deferred. No Rayo. EXTREMITIES: Non-edematous and not cyanotic. No clubbing. Good capillary refill. SKIN: No skin breakdown. Vital Signs (last 8hr) Date Time Temp Pulse Resp B/P (MAP) Pulse Ox O2 Delivery O2 Flow Rate FiO2 10/01/24 09:42 84 19 117/67 96 Room Air* 0 21 10/01/24 07:46 74 17 104/66 96 Room Air* 0 21 10/01/24 07:41 78 18 N/A Room Air 0.0 21 10/01/24 06:43 81 18 10/01/24 06:34 78 18 111/70 95 Room Air* 0 21 10/01/24 03:50 76 12 128/75 94 Room Air* 0 21 LABS: Laboratory: Test 10/01/24 07:04 09/30/24 18:10 09/30/24 14:43 09/30/24 13:19 Range/Units White Blood Count 10.8 4.8-10.8 K/uL Red Blood Count 4.53 4.50-6.20 MIL/uL Hemoglobin 13.8 L 14.0-18.0 g/dL Hematocrit 41.6 L 42-54 % Mean Corpuscular Volume 91.8 79-99 fL Mean Corpuscular Hemoglobin 30.5 27.0-33.0 pg Mean Corpuscular Hemoglobin Concent 33.2 32.0-36.0 g/dL Red Cell Distribution Width 13.3 11.0-15.5 % Platelet Count 306 130-400 K/uL Mean Platelet Volume 9.3 7.5-10.5 fL Immature Granulocyte % (Auto) 0.4 0-1 % Neutrophils (%) (Auto) 66.5 40.0-77.0 % Lymphocytes (%) (Auto) 22.3 21.0-51.0 % Monocytes (%) (Auto) 9.8 3.0-13.0 % Eosinophils (%) (Auto) 0.6 0.0-8.0 % Basophils (%) (Auto) 0.4 0.0-5.0 % Neutrophils # (Auto) 7.2 1.8-7.7 K/uL Lymphocytes # (Auto) 2.4 1.0-4.8 K/uL Monocytes # (Auto) 1.1 H 0.1-1.0 K/uL Eosinophils # (Auto) 0.06 0.00-0.70 K/uL Basophils # (Auto) 0.04 0.00-0.20 K/uL Absolute Immature Granulocyte (auto 0.04 0-1 K/uL Nucleated Red Blood Cells 0.0 0.0-0.19 % Sodium Level 142 136-145 mmol/L Potassium Level 4.3 3.5-5.1 mmol/L Chloride Level 109 101-111 mmol/L Carbon Dioxide Level 26 21-32 mmol/L Blood Urea Nitrogen 12 7-18 mg/dL Creatinine 0.9 0.5-1.3 mg/dL Glomerular Filtration Rate Calc 104 >90 mL/min Random Glucose 77 70-105 mg/dL Total Calcium 8.6 8.5-10.1 mg/dL Magnesium Level 2.00 1.80-2.40 mg/dL Total Bilirubin 0.2 0.2-1.0 mg/dL Aspartate Amino Transf (AST/SGOT) 15 10-37 U/L Alanine Aminotransferase (ALT/SGPT) 38 12-78 U/L Alkaline Phosphatase 73 50-136 U/L Total Protein 6.5 6.0-8.3 g/dL Albumin 3.0 L 3.5-5.0 g/dL Influenza Type A Antigen Negative For Type A NEGATIVE Influenza Type B Antigen Negative For Type B NEGATIVE SARS-CoV-2, RNA, NAAT NEGATIVE SARS CoV-2 NEGATIVE Group A Streptococcus Rapid negative NEGATIVE Urine Color COLORLESS YELLOW Urine Appearance CLEAR CLEAR Urine pH 6.5 5.0-8.0 Urine Specific [place] 1.005 1.001-1.031 Urine Protein NEGATIVE NEGATIVE mg/dL Urine Glucose (UA) NEGATIVE NEGATIVE mg/dL Urine Ketones NEGATIVE NEGATIVE mg/dL Urine Occult Blood NEGATIVE NEGATIVE Urine Nitrate NEGATIVE NEGATIVE Urine Bilirubin NEGATIVE NEGATIVE mg/dL Urine Urobilinogen 0.2 0.2-1.0 mg/dL Urine Leukocyte Esterase NEGATIVE NEGATIVE [place]/uL Erythrocyte Sedimentation Rate 17 0-20 MM/HR Prothrombin Time 10.6 9.6-11.6 SEC Prothromb Time International Ratio 0.94 0.85-1.15 Activated Partial Thromboplast Time 28.5 26.3-35.5 SEC Total Creatine Kinase 217 # 21-232 U/L Troponin I High Sensitivity 4 4-75 ng/L C-Reactive Protein, Quantitative 17.40 H 0.5-3.0 mg/L B-Type Natriuretic Peptide 11 0-100 pg/mL Procalcitonin < 0.05 L 0.05-0.5 ng/mL Current Medications Medications (Trade) Dose Ordered Sig/Romero Route PRN Reason Start Time Stop Time Status Last Admin Dose Admin Albuterol (DUOneb) 1 udvial Q6H PRN IH SHORTNESS OF BREATH 09/30/24 18:30 10/30/24 18:29 Amlodipine Besylate (NorvASC 5MG TAB) 10 mg DAILY PO 10/01/24 09:00 10/31/24 08:59 Aspirin (Aspirin 81mg Chew Tab) 81 mg DAILY PO 10/01/24 09:00 10/31/24 08:59 Budesonide (Pulmicort 0.5 Mg/2ml) 0.5 mg BIDRESP IH 09/30/24 18:30 10/30/24 18:29 10/01/24 06:43 0.5 MG Ceftriaxone Sodium (Rocephin 2gm Inj) 2 gm Q24H IVPB 09/30/24 18:30 10/10/24 18:29 09/30/24 18:17 2 GM Clopidogrel Bisulfate (plaVIX 75MG) 75 mg DAILY PO 10/01/24 09:00 10/31/24 08:59 Doxycycline Hyclate 250 ml @ 125 mls/hr Q12H IV 09/30/24 20:00 10/10/24 19:59 10/01/24 08:12 125 MLS/HR Guaifenesin/ Dextromethorphan (RobiTUSSin DM 200/20MG 10ML) 10 ml Q6H PRN PO COUGH 09/30/24 18:30 09/30/24 19:45 DC Guaifenesin/ Dextromethorphan (RobiTUSSin DM 200/20MG 10ML) 10 ml Q6H PRN PO COUGH 09/30/24 20:00 10/30/24 19:59 Hydralazine HCl (APRESOLine 20MG INJ) 5 mg Q6H PRN IV ADMINISTER FOR SBP > 160 09/30/24 18:30 10/30/24 18:29 Pantoprazole Sodium (PROTonix 40MG TAB) 40 mg Q24H PO 09/30/24 18:30 10/30/24 18:29 09/30/24 18:17 40 MG Sodium Chloride 1,000 ml @ 80 mls/hr [id number] IV 09/30/24 18:00 10/30/24 17:59 10/01/24 06:34 80 MLS/HR DIAGNOSTICS / RADIOLOGY: [ ] ASSESSMENT: Suspected Bilateral multifocal acute pneumonitis, POA Nonresolving acute bronchitis, POA Allergic rhinitis, POA Failure of outpatient antibiotic therapy, POA Recrudescence of stroke symptoms secondary to underlying pneumonia, POA Prior history of right cerebellar CVA, PO, 06/2024 History of left vertebral artery stenosis, 06/2024, per Dr. Rosales interpretation, POA Hypertension, POA Hyperlipidemia, POA dual antiplatelet and statin therapy as outpatient, POA PLAN: Continue admission in the cardiac telemetry floor CT chest on further evaluation shows bibasilar bilateral lobe community-acquired pneumonia, Continue IV Rocephin doxycycline Pending respiratory cultures Flu and COVID are negative Blood pressure remains in the 100s/60s tonight, we will hold lisinopril and continue amlodipine 10 mg daily, orthostatic vitals were noted to be negative Avoid any episodes of hypotension given underlying history of left vertebral artery stenosis Discontinue IV fluids Continue heart healthy diet Reviewed MRI brain, ruled out acute CVA, patient's case was discussed with Dr. Rosales with Neurology , signing off Continue antiplatelet therapy with aspirin and Plavix Continue statin therapy Following human resources trainer's recommendations Repeat chest x-ray in the morning Continue IS hourly as tolerated Continue CPT with DuoNebs Monitoring replace electrolytes Start to work with physical therapy for safe discharge planning Start antihistamines and Flonase Monitor a.m. labs PRN Treatment - Add when necessary meds for nausea, vomiting, pain, constipation, insomnia. DVT/GI prophylaxis- Continue Lovenox and Protonix at current doses. Full CODE STATUS This document was generated in part using voice recognition software, occasional wrong word or sound alike substitutions may have occurred due to the inherent limitations of voice recognition software. Read the chart carefully and recognize using context, where the substitutions have occurred. Although every effort was made to edit the content, communications marketing intern and typing errors may occur RYLAND GARCIA Oct 01, 2024 10:20
--- NOTE | 2024-10-01 10:49 | CONS ---
CONSULTATION NOTE Date of Service: Oct 01, 2024 Reason for Consultation: Evaluation of dizziness Requesting Physician: Hospitalist HISTORY OF PRESENT ILLNESS: This is a very nice 49 years old right-handed gentleman that has a past medical history remarkable for dyslipidemia, essential hypertension, sinusitis, left vertebral artery stenosis and a recent cerebellar stroke in June 2024 who was admitted for evaluation and management of productive cough and dizziness. The patient stated that his symptoms started about two weeks ago when the patient started complaining of a productive cough that has been constant since then. The patient was also recently diagnosed with right maxillary sinusitis by an ENT physician. He explains that over the past two days he has had persistent mild dizziness mostly described as lightheadedness but no room spinning sensation. The patient denies having any right-sided left-sided weakness numbness tingling sensation facial droop blurry vision double vision headaches or any other symptomatology. An MRI of the brain without contrast was negative for stroke. REVIEW OF SYSTEMS CONSTITUTIONAL: Denies fever, chills, or fatigue. HEAD/FACE: No signs of trauma. EENT: Denies eye pain, blurred vision, double vision, or light sensitivity. RESPIRATORY: Denies shortness of breath, cough, wheezing CARDIOVASCULAR: Denies chest pain, palpitation, syncope GASTROINTESTINAL/ABDOMINAL: Denies abdominal pain, constipation, diarrhea, nausea or vomiting GENITOURINARY: Denies dysuria or hematuria. MUSCULOSKELETAL: Denies joint pain, tenderness, or trauma. INTEGUMENTARY: Denies rash or itchiness NEUROLOGICAL/PSYCH: dizziness. PAST MEDICAL HISTORY: Dyslipidemia, essential hypertension, sinusitis, left vertebral artery stenosis and a recent cerebellar stroke PAST SURGICAL HISTORY: Noncontributory PAST SOCIAL HISTORY: No tobacco alcohol recreational drug abuse FAMILY HISTORY: No family history of stroke or seizures Coded Allergies: No Known Drug Allergies (Unverified Allergy, Unknown, 07/08/24) PHYSICAL EXAM Mental status: The patient is alert, attentive, and oriented. Speech is clear and fluent with good repetition, comprehension, and naming. Pt recalls 3/3 objects at 5 minutes. Cranial nerves: CN II: Visual campbell are full to confrontation. CN III, IV, : At primary gaze, there is no eye deviation. CN V: Facial sensation is intact to pinprick in all 3 divisions bilaterally. Corneal responses are intact. CN VII: Face is symmetric with normal eye closure and smile. CN VIII: Hearing is normal to rubbing fingers CN IX, X: Palate elevates symmetrically. Phonation is normal. CN XI: Head turning and shoulder shrug are intact CN XII: Tongue is midline with normal movements and no atrophy. Motor: There is no pronator drift of out-stretched arms. Muscle bulk and tone are normal. Strength is full bilaterally. Reflexes: Reflexes are 2+ and symmetric at the biceps, triceps, knees, and ankles. Plantar responses are flexor. Sensory: Light touch, pinprick, position sense, and vibration sense are intact in fingers and toes. Coordination: Rapid alternating movements and fine finger movements are intact. There is no dysmetria on nlpmyl-pf-reay and mpli-epun-juht. There are no abnormal or extraneous movements. Romberg is absent. Gait/Stance: Not evaluated nihss: 0 Vital Sign (Last 24 Hours) 09/30/24 10/01/24 23:55 09:42 Temp 97.7 Pulse 84 Resp 19 B/P (MAP) 117/67 Pulse Ox 96 O2 Delivery Room Air* O2 Flow Rate 0 FiO2 21 LABS: Laboratory: Test 10/01/24 07:04 09/30/24 18:10 09/30/24 14:43 09/30/24 13:19 Range/Units White Blood Count 10.8 4.8-10.8 K/uL Red Blood Count 4.53 4.50-6.20 MIL/uL Hemoglobin 13.8 L 14.0-18.0 g/dL Hematocrit 41.6 L 42-54 % Mean Corpuscular Volume 91.8 79-99 fL Mean Corpuscular Hemoglobin 30.5 27.0-33.0 pg Mean Corpuscular Hemoglobin Concent 33.2 32.0-36.0 g/dL Red Cell Distribution Width 13.3 11.0-15.5 % Platelet Count 306 130-400 K/uL Mean Platelet Volume 9.3 7.5-10.5 fL Immature Granulocyte % (Auto) 0.4 0-1 % Neutrophils (%) (Auto) 66.5 40.0-77.0 % Lymphocytes (%) (Auto) 22.3 21.0-51.0 % Monocytes (%) (Auto) 9.8 3.0-13.0 % Eosinophils (%) (Auto) 0.6 0.0-8.0 % Basophils (%) (Auto) 0.4 0.0-5.0 % Neutrophils # (Auto) 7.2 1.8-7.7 K/uL Lymphocytes # (Auto) 2.4 1.0-4.8 K/uL Monocytes # (Auto) 1.1 H 0.1-1.0 K/uL Eosinophils # (Auto) 0.06 0.00-0.70 K/uL Basophils # (Auto) 0.04 0.00-0.20 K/uL Absolute Immature Granulocyte (auto 0.04 0-1 K/uL Nucleated Red Blood Cells 0.0 0.0-0.19 % Sodium Level 142 136-145 mmol/L Potassium Level 4.3 3.5-5.1 mmol/L Chloride Level 109 101-111 mmol/L Carbon Dioxide Level 26 21-32 mmol/L Blood Urea Nitrogen 12 7-18 mg/dL Creatinine 0.9 0.5-1.3 mg/dL Glomerular Filtration Rate Calc 104 >90 mL/min Random Glucose 77 70-105 mg/dL Total Calcium 8.6 8.5-10.1 mg/dL Magnesium Level 2.00 1.80-2.40 mg/dL Total Bilirubin 0.2 0.2-1.0 mg/dL Aspartate Amino Transf (AST/SGOT) 15 10-37 U/L Alanine Aminotransferase (ALT/SGPT) 38 12-78 U/L Alkaline Phosphatase 73 50-136 U/L Total Protein 6.5 6.0-8.3 g/dL Albumin 3.0 L 3.5-5.0 g/dL Influenza Type A Antigen Negative For Type A NEGATIVE Influenza Type B Antigen Negative For Type B NEGATIVE SARS-CoV-2, RNA, NAAT NEGATIVE SARS CoV-2 NEGATIVE Group A Streptococcus Rapid negative NEGATIVE Urine Color COLORLESS YELLOW Urine Appearance CLEAR CLEAR Urine pH 6.5 5.0-8.0 Urine Specific [place] 1.005 1.001-1.031 Urine Protein NEGATIVE NEGATIVE mg/dL Urine Glucose (UA) NEGATIVE NEGATIVE mg/dL Urine Ketones NEGATIVE NEGATIVE mg/dL Urine Occult Blood NEGATIVE NEGATIVE Urine Nitrate NEGATIVE NEGATIVE Urine Bilirubin NEGATIVE NEGATIVE mg/dL Urine Urobilinogen 0.2 0.2-1.0 mg/dL Urine Leukocyte Esterase NEGATIVE NEGATIVE [place]/uL Erythrocyte Sedimentation Rate 17 0-20 MM/HR Prothrombin Time 10.6 9.6-11.6 SEC Prothromb Time International Ratio 0.94 0.85-1.15 Activated Partial Thromboplast Time 28.5 26.3-35.5 SEC Total Creatine Kinase 217 # 21-232 U/L Troponin I High Sensitivity 4 4-75 ng/L C-Reactive Protein, Quantitative 17.40 H 0.5-3.0 mg/L B-Type Natriuretic Peptide 11 0-100 pg/mL Procalcitonin < 0.05 L 0.05-0.5 ng/mL DIAGNOSTICS / RADIOLOGY: MRI brain: Negative for strokes ASSESSMENT / PLAN: 1).- Dizziness - based on the patient's history and physical examination it is likely this patient has lightheadedness mostly secondary to volume depletion due to bronchitis and sinusitis. Other possible diagnosis includes peripheral vertigo caused by vestibulitis due to upper respiratory infection/sinusitis. The patient does not describe having room spinning sensation and for that reason vertigo is less likely. Continue patient on current therapy IV fluids and blood pressure management by primary team. Continue IV antibiotic therapy by primary team. Thank you for your consultation. I will sign off LESLI HERNDON MD Oct 01, 2024 10:48
[2024-10-01] MEDS: IpraTROPium/alBUTERol SULFATE 3 ML SOLUTION IH PRN (11:17)
--- NOTE | 2024-10-01 11:38 | CONS ---
[facility] CONSULTATION NOTE Date Patient Seen: Oct 01, 2024 Time of Visit: 11:27 Supervising Physician: [ ] Dr. Felicia Escalante Reason for Consultation: [ ] Respiratory failure, pneumonia Primary Care Physician: [ ] Outpatient Specialists: [ ] Inpatient Consults: [ ] BIS, neurology PROBLEM LIST: Bilateral multifocal community-acquired pneumonia, POA Nonresolving acute bronchitis, POA Failure of outpatient antibiotic therapy, POA Recrudescence of stroke symptoms secondary to underlying pneumonia, POA Prior history of right cerebellar CVA, PO, 06/2024 History of left vertebral artery stenosis, 06/2024, per Dr. Rosales interpretation, POA Hypertension, POA Hyperlipidemia, POA History of dual antiplatelet therapy as outpatient, POA HPI: 49-year-old male with underlying history of hypertension, hyperlipidemia, prior history of right cerebellar stroke on 06/2024, history of left vertebral artery stenosis who presented to the ER for further evaluation of two days of persistent dizziness. Patient states that he has been following up with his PCP and he has been having symptoms of productive cough for the past two weeks. He has been on outpatient therapy with [facility] and recently saw his PCP again where he received intramuscular shot of antibiotics and oral prednisone. He continues to do poorly with symptoms of bronchitis. Yesterday afternoon, while at work, patient states that he started experiencing symptoms of dizziness. Symptoms became more pronounced stated today and patient reports having unsteady gait with ambulation where he had to hold on to the dong for ambulation. Symptoms were not as severe compared to his previous history of stroke in 06/2024 with vertigo. Patient reports that he has a history of mild chronic vertigo since the stroke. He has been also followed by ENT as outpatient for management of right maxillary sinusitis. Patient is being followed They have suggested surgical treatment for management of sinusitis. Patient states that he was worried about possible stroke given persistent sympto ms of dizziness and he presented to the ER for further evaluation. On presentation to the hospital, patient was noted to be afebrile and hemodynamically stable. Chest x-ray showed no significant infiltrates. MRI of the brain was obtained which showed no acute stroke. Patient had a CT scan of the chest which shows bilateral lower lobe and right middle lobe pneumonia. For this reason we are consulted. Patient is seen sitting up in the ED stretcher with no signs of acute distress. Patient denies chest discomfort, chest pain, or shortness on breath with exertion. Patient remains on room air with an O2 sat of 96%. No acute changes reported overnight. Patient did report lightheadedness which may be secondary to volume depletion. It appears patient may be suffering from bronchitis and sinusitis. Patient does report he takes lisinopril for hypertension. Informed patient that ALEXA inhibitors are very well known for causing cough. CT scan of the chest was reviewed and patient does have very minimal infiltrates. Recommend continue current antibiotics treatment. Duo nebs as needed. Hold lisinopril for now. Given his history of stroke recommend speech therapy evaluation. Repeat a.m. labs. PAST MEDICAL HX: see above PAST SURGICAL HX: noncontributory SOCIAL HISTORY: No tobacco, ETOH, or illicit drug use Coded Allergies: No Known Drug Allergies (Unverified Allergy, Unknown, 07/08/24) REVIEW OF SYSTEMS: 12 point ROS reviewed with patient. Pertinent positives mentioned above. Otherwise negative. PHYSICAL EXAM: GENERAL: alert, weak, awake oriented x 3 HEENT: EOMI, Sclera non icteric, moist mucosa NECK: Supple, no JVD, trachea midline LUNGS: Clear breath sounds bilaterally. No wheezes HEART: Regular rate and rhythm. Normal S1 and S2, without murmurs ABD: Abdomen soft, nontender. Bowel sounds present EXT: No clubbing cyanosis or edema NEURO: Alert and oriented to person, follows commands Vital Signs (last 8hr) Date Time Temp Pulse Resp B/P (MAP) Pulse Ox O2 Delivery O2 Flow Rate FiO2 10/01/24 09:42 84 19 117/67 96 Room Air* 0 21 10/01/24 07:46 74 17 104/66 96 Room Air* 0 21 10/01/24 07:41 78 18 N/A Room Air 0.0 21 10/01/24 06:43 81 18 10/01/24 06:34 78 18 111/70 95 Room Air* 0 21 10/01/24 03:50 76 12 128/75 94 Room Air* 0 21 LABS: Hematology Labs: Test 10/01/24 07:04 09/30/24 13:19 Range/Units White Blood Count 10.8 4.8-10.8 K/uL Red Blood Count 4.53 4.50-6.20 MIL/uL Hemoglobin 13.8 L 14.0-18.0 g/dL Hematocrit 41.6 L 42-54 % Mean Corpuscular Volume 91.8 79-99 fL Mean Corpuscular Hemoglobin 30.5 27.0-33.0 pg Mean Corpuscular Hemoglobin Concent 33.2 32.0-36.0 g/dL Red Cell Distribution Width 13.3 11.0-15.5 % Platelet Count 306 130-400 K/uL Mean Platelet Volume 9.3 7.5-10.5 fL Immature Granulocyte % (Auto) 0.4 0-1 % Neutrophils (%) (Auto) 66.5 40.0-77.0 % Lymphocytes (%) (Auto) 22.3 21.0-51.0 % Monocytes (%) (Auto) 9.8 3.0-13.0 % Eosinophils (%) (Auto) 0.6 0.0-8.0 % Basophils (%) (Auto) 0.4 0.0-5.0 % Neutrophils # (Auto) 7.2 1.8-7.7 K/uL Lymphocytes # (Auto) 2.4 1.0-4.8 K/uL Monocytes # (Auto) 1.1 H 0.1-1.0 K/uL Eosinophils # (Auto) 0.06 0.00-0.70 K/uL Basophils # (Auto) 0.04 0.00-0.20 K/uL Absolute Immature Granulocyte (auto 0.04 0-1 K/uL Nucleated Red Blood Cells 0.0 0.0-0.19 % Erythrocyte Sedimentation Rate 17 0-20 MM/HR Chemistry Labs: Test 10/01/24 07:04 09/30/24 13:19 Range/Units Sodium Level 142 136-145 mmol/L Potassium Level 4.3 3.5-5.1 mmol/L Chloride Level 109 101-111 mmol/L Carbon Dioxide Level 26 21-32 mmol/L Blood Urea Nitrogen 12 7-18 mg/dL Creatinine 0.9 0.5-1.3 mg/dL Glomerular Filtration Rate Calc 104 >90 mL/min Random Glucose 77 70-105 mg/dL Total Calcium 8.6 8.5-10.1 mg/dL Magnesium Level 2.00 1.80-2.40 mg/dL Total Bilirubin 0.2 0.2-1.0 mg/dL Aspartate Amino Transf (AST/SGOT) 15 10-37 U/L Alanine Aminotransferase (ALT/SGPT) 38 12-78 U/L Alkaline Phosphatase 73 50-136 U/L Total Protein 6.5 6.0-8.3 g/dL Albumin 3.0 L 3.5-5.0 g/dL Total Creatine Kinase 217 # 21-232 U/L Troponin I High Sensitivity 4 4-75 ng/L C-Reactive Protein, Quantitative 17.40 H 0.5-3.0 mg/L B-Type Natriuretic Peptide 11 0-100 pg/mL Procalcitonin < 0.05 L 0.05-0.5 ng/mL Coagulation Labs: Test 09/30/24 13:19 Range/Units Prothrombin Time 10.6 9.6-11.6 SEC Prothromb Time International Ratio 0.94 0.85-1.15 Activated Partial Thromboplast Time 28.5 26.3-35.5 SEC DIAGNOSTICS / RADIOLOGY RESULTS: PATIENT: ALEX DAVEY MR#: [id number] : 1975 SEX: M AGE: 49 [facility] STATUS: ADM IN [facility] REPORT#: [id number] SERVICE 56 REASON: PERSISTENT NON RESOLVING COUGH X 2 WEEKS WITH BRONCHITIS ORDERING PHYSICIAN: AJIT SOLER MD PROCEDURE: CHEST WO - CT CHEST W/O CONTRAST CT CHEST W/O CONTRAST HISTORY: PERSISTENT NON RESOLVING COUGH X 2 WEEKS WITH BRONCHITIS TECHNIQUE: CT CHEST W/O CONTRAST. Coronal and sagittal reformats were obtained. CT was performed with one or more of the following dose reduction techniques: Automated exposure control, adjustment of the mA and/or kV according to the patient's size, or use of the iterative reconstruction technique. FINDINGS: The noncontrast nature this study limits evaluation of the mediastinal structures. Mild airspace consolidation in the bilateral lower lobe and right middle lobe concerning for pneumonia. Bronchiectasis seen in the right lower lobe. There is no pleural effusion or pneumothorax. The heart is normal in size. No pericardial effusion. The aorta is normal in caliber. No bulky mediastinal or hilar lymphadenopathy is seen. There is no acute findings in the visualized upper abdomen. No acute osseous injury is identified. IMPRESSION: Mild airspace consolidation in the bilateral lower lobe and right middle lobe concerning for pneumonia. Bronchiectasis seen in the right lower lobe. There is no pleural effusion or pneumothorax. DICTATED BY: ANSHU SUTTON MD DATE: 09/30/241901 ELECTRONICALLY SIGNED BY: ANSHU SUTTON MD DATE: 09/30/241904 PLAN Supplemental oxygen as needed Duo nebs as needed Continue Rocephin Continue doxycycline Hold lisinopril Speech therapy evaluation Repeat a.m. labs NEURO: Minimize central acting medications as possible. Maintain fall precautions, adequate lighting during the day PULMONARY: Supplemental 02 as needed. Maintain aspiration precautions at all times CARDIOVASCULAR: Follow hemodynamics. Vital signs per facility protocol GI & NUTRITION: Continue with nutritional support. Continue stool softeners and laxatives as needed. KIDNEYS & ELECTROLYTES: Strict monitoring of intake, output and overall fluid balance. Avoid nephrotoxic medications to the extent possible. Medications to be dosed according to renal function. Monitor electrolytes and replace as needed ENDOCRINE: Maintain blood glucose between 100-180 at all times. Hypoglycemia protocol in place INFECTIOUS DISEASE: Trend temperature, WBC and procalcitonin level Follow cultures, deescalate antibiotics as soon as possible. Panculture if new onset fever ONCOLOGY/HEMATOLOGY/COAGULATION: Monitor for s/s of bleeding Monitor hemoglobin, coagulation studies as needed SKIN: Pressure ulcer prevention per facility protocol Specialty mattress ORTHO/REHAB: Continue PT/OT Prophylaxis: Continue GI and DVT prophylaxis Code Status: Full Resuscitation Disposition: As per attending. Other: Total patient care time exceeds 35 minutes excluding all procedures. ATTESTATION BY PHYSICIAN The patient has been seen and evaluated, the case has been discussed with the OFF TRACK BETTING MANAGER, I agree with the clinical findings and plan of care. Antonio Escalante MD, ECTOR N OFF TRACK BETTING MANAGER Oct 01, 2024 11:38
[2024-10-01] MEDS: ceTIRIzine HCL 5 MG TABLET PO SCH (14:42)
--- NOTE | 2024-10-01 17:07 | NUR ---
gave report to Kelly Dasilva lvn no concerns voiced
--- NOTE | 2024-10-01 18:17 | NUR ---
INITIAL/DCP HOME Met w pt and spouse this afternoon to discuss dcp. Pt admitted w PNA. EC spouse Aby Donaldson [phone]. Preferred pharmacy [facility] on [address]. Pt lives at home w his and 17 yo son. Pt is independent w ambulation and ADLs. DME includes a cane and walker. Discharge goal is to return home. Addendum: 10/01/24 at 1820 by KENYETTA BUTLER CM Amended: Links added.
[2024-10-01] MEDS: fluTICasone proPIONate 50MCG/SPRAY 16 GM BOTTLE EN SCH (20:57)
[2024-10-01] MEDS: monteLUKAST sodIUM 10 MG TAB PO SCH (20:57)
[2024-10-01] MEDS: ENOXAPARIN SODIUM 30 MG/0.3 ML SQ SCH (20:58)
[2024-10-02] VITALS (14 sets, daily range): BP systolic 107–130; BP diastolic 69–77; PULSE 65–86; RESP 16–20; TEMP 97.8–98.6; O2SAT 94–97
[2024-10-02 05:18] LABS: BASOPHILS # (AUTO) 0.06 K/uL (0.00-0.20); BASOPHILS % (AUTO) 0.7 % (0.0-5.0); EOSINOPHILS # (AUTO) 0.13 K/uL (0.00-0.70); EOSINOPHILS % (AUTO) 1.6 % (0.0-8.0); HEMATOCRIT 39.4 % (42-54); IMMATURE GRANULOCYTE ABSOLUTE 0.03 K/uL (0-1); LYMPHOCYTES # (AUTO) 2.4 K/uL (1.0-4.8); LYMPHOCYTES % (AUTO) 29.7 % (21.0-51.0); MEAN CORPUSCULAR HEMOGLOBIN 30.4 pg (27.0-33.0); MEAN CORPUSCULAR HGB CONC 32.7 g/dL (32.0-36.0); MEAN CORPUSCULAR VOLUME 92.7 fL (79-99); MONOCYTES # (AUTO) 0.8 K/uL (0.1-1.0); MONOCYTES % (AUTO) 9.3 % (3.0-13.0); NEUTROPHILS # (AUTO) 4.7 K/uL (1.8-7.7); NEUTROPHILS % (AUTO) 58.3 % (40.0-77.0); PLATELET COUNT (AUTO) 299 K/uL (130-400); RED BLOOD CELL COUNT(AUTO) 4.25 MIL/uL (4.50-6.20); RED CELL DISTRIBUTION WIDTH 13.5 % (11.0-15.5); WHITE BLOOD COUNT (AUTO) 8.1 K/uL (4.8-10.8)
--- NOTE | 2024-10-02 09:27 | HMCIMG ---
CHEST 1VW REASON: pneumonia COMPARISON: 09/30/2024 FINDINGS: There is platelike atelectasis in both lung bases. Lungs are otherwise clear. Heart size is normal with no vascular congestion. There are no pleural effusions. Mediastinum and bony thorax appear unremarkable. IMPRESSION: 1. Platelike atelectasis in both lung bases.
--- NOTE | 2024-10-02 14:38 | PN ---
[facility] PROGRESS NOTE Date of Service: Oct 02, 2024 Time of Service: 14:[address] Zuniga SUBJECTIVE: [ ] 10/01 49-year-old male with a past medical history of essential hypertension, hyperlipidemia, history of right cerebellar stroke on 06/2024, history of left vertebral artery stenosis was admitted to the cardiac telemetry floor with diagnosis of bilateral multifocal community-acquired pneumonia, none resolving acute bronchitis, failure of outpatient antibiotic therapy and recrudescence of stroke symptoms. Today on bedside evaluation patient was found awake alert and oriented x 3. The power chart reviewed, vital signs, laboratory tests, imaging test and medications have been reviewed. Vitals are stable, afebrile, satting 97% on room air. Leukocytosis resolved, CBC and CMP are stable. Pending respiratory cultures. Reviewed images with patient and patient's , no acute findings. Neurologist was consulted secondary to patient's prior CVA and dizziness. From Neurology standpoint patient is stable, signing off. Continue home medications. Continue IV Rocephin and doxycycline. Starting antihistamines and Flonase. We will follow asbestos cement sheet supervisor's recommendations. Patient is a start work with physical therapy for safe discharge planning. 10/02 patient was seen by nurse practitioner and physician during rounding in room 410. Patient was evaluated by asbestos cement sheet supervisor and at this moment patient is denying any shortness of breaths with exertion any chest pain or any discomfort. Patient is on room air satting 96%. Patient was reporting lightheadedness which was probably secondary to dehydration. As per asbestos cement sheet supervisor patient appears to be suffering from bronchitis and sinusitis. Patient takes lisinopril hypertension and unfortunately ALEXA inhibitors a very well known for causing chronic cough. We will hold lisinopril for now and re-evaluate the patient. Duo nebs as needed. Patient was also evaluated by neurologist and at this moment he will signed off. Neurologist also believes that the lightheadedness that is mostly secondary to volume depletion due to bronchitis and sinusitis. We are pending final sputum culture. Urine culture final is negative. Labs and radiology was reviewed by [employer] INTERFACE DEVELOPER. Most recent chest x-ray 10/02/2024 showed platelike atelectasis in both lungs bases. Patient is on doxycycline and Rocephin. We will continue to monitor patient in the meantime. A.m. labs. REVIEW OF SYSTEMS: CONSTITUTIONAL: Denies fevers, chills, or night sweats. No unintentional weight loss reported. NEUROLOGICAL: Denies headache, amaurosis fugax, motor weakness, sensory defi cit, vertigo/spinning sensation, gait abnormalities, or tremors. ENT: No hearing loss, otalgia, otorrhea, rhinitis, rhinorrhea, hoarseness, or sore throat. CARDIOVASCULAR: Denies any exertional angina, dyspnea on exertion, orthopnea, paroxysmal nocturnal dyspnea, palpitations, life-threatening arrhythmias, claudication. PULMONARY: Persistent nonresolving cough which has improved from the previous day. Denies any shortness of breath SLEEP: Denies morning headaches, daytime somnolence or napping. Denies difficulty falling asleep, staying asleep, waking from sleep. Denies knowledge of snoring. GASTROINTESTINAL: Denies any type of dysphagia to either liquids or solids. Denies nausea, vomiting, pyrosis, early satiety, abdominal pain, diarrhea, constipation, or changes in stool consistency or caliber. Denies coffee-ground emesis, hematemesis, hematochezia, or melanotic stools. GENITOURINARY: Denies frequency, urgency, nocturia, hematuria or incontinence (Storage/Irritative symptoms.) Low urinary stream, straining to void, urinary intermittency or hesitancy, splitting of the voiding stream, terminal dribbling. ENDOCRINOLOGIC: Denies polyuria, polydipsia, polyphagia or heat/cold intolerances. HEMATOLOGIC: Denies thrombophilia/previous clots, or coagulopathy/bleeding disorders. ONCOLOGIC: Denies personal history of malignancy. DERMATOLOGIC: Denies rashes or pruritus. PSYCHIATRIC: Denies any suicidal or homicidal ideation. Denies hallucinations. PHYSICAL EXAM GENERAL APPEARANCE: The patient is awake, alert, and oriented, in no acute cardiopulmonary distress. NEUROLOGICAL: Cranial nerves II-XII grossly intact. Motor is 5/5 in bilateral upper and lower extremities proximal to distal. No sensory deficits. HEENT: Face is symmetric. Pupils are equal and reactive. Extraocular movements are intact. NECK: Supple. No JVD. No thyromegaly. No submental, submandibular, pre- /postauricular, occipital or supraclavicular lymphadenopathy. CHEST: Normal chest expansion. No Telemetry. LUNGS: Absence of any rales, rhonchi or any wheezing. CARDIOVASCULAR: Regular. S1 and S2 normal. No appreciable rubs, murmurs or gallops. ABDOMEN: Soft, nontender, and nondistended. There is no rebound, voluntary guarding, or rigidity. : Deferred. No Rayo. EXTREMITIES: Non-edematous and not cyanotic. No clubbing. Good capillary refill. SKIN: No skin breakdown. Vital Signs (last 8hr) Date Time Temp Pulse Resp B/P (MAP) Pulse Ox O2 Delivery O2 Flow Rate FiO2 10/02/24 11:24 98.1 67 20 117/75 96 Room Air 21 10/02/24 11:05 68 18 10/02/24 08:30 70 18 N/A Room Air 21 10/02/24 07:10 98.2 70 20 121/77 96 Room Air 21 10/02/24 06:43 71 18 LABS: Laboratory: Test 10/02/24 04:06 10/01/24 07:04 09/30/24 18:10 09/30/24 14:43 Range/Units White Blood Count 8.1 4.8-10.8 K/uL Red Blood Count 4.25 L 4.50-6.20 MIL/uL Hemoglobin 12.9 L 14.0-18.0 g/dL Hematocrit 39.4 L 42-54 % Mean Corpuscular Volume 92.7 79-99 fL Mean Corpuscular Hemoglobin 30.4 27.0-33.0 pg Mean Corpuscular Hemoglobin Concent 32.7 32.0-36.0 g/dL Red Cell Distribution Width 13.5 11.0-15.5 % Platelet Count 299 130-400 K/uL Mean Platelet Volume 9.5 7.5-10.5 fL Immature Granulocyte % (Auto) 0.4 0-1 % Neutrophils (%) (Auto) 58.3 40.0-77.0 % Lymphocytes (%) (Auto) 29.7 21.0-51.0 % Monocytes (%) (Auto) 9.3 3.0-13.0 % Eosinophils (%) (Auto) 1.6 0.0-8.0 % Basophils (%) (Auto) 0.7 0.0-5.0 % Neutrophils # (Auto) 4.7 1.8-7.7 K/uL Lymphocytes # (Auto) 2.4 1.0-4.8 K/uL Monocytes # (Auto) 0.8 0.1-1.0 K/uL Eosinophils # (Auto) 0.13 0.00-0.70 K/uL Basophils # (Auto) 0.06 0.00-0.20 K/uL Absolute Immature Granulocyte (auto 0.03 0-1 K/uL Nucleated Red Blood Cells 0.0 0.0-0.19 % Sodium Level 140 136-145 mmol/L Potassium Level 4.0 3.5-5.1 mmol/L Chloride Level 107 101-111 mmol/L Carbon Dioxide Level 26 21-32 mmol/L Blood Urea Nitrogen 13 7-18 mg/dL Creatinine 1.0 0.5-1.3 mg/dL Glomerular Filtration Rate Calc 92 >90 mL/min Random Glucose 85 70-105 mg/dL Total Calcium 8.3 L 8.5-10.1 mg/dL Magnesium Level 2.00 1.80-2.40 mg/dL Total Bilirubin 0.2 0.2-1.0 mg/dL Aspartate Amino Transf (AST/SGOT) 15 10-37 U/L Alanine Aminotransferase (ALT/SGPT) 38 12-78 U/L Alkaline Phosphatase 73 50-136 U/L Total Protein 6.5 6.0-8.3 g/dL Albumin 3.0 L 3.5-5.0 g/dL Influenza Type A Antigen Negative For Type A NEGATIVE Influenza Type B Antigen Negative For Type B NEGATIVE SARS-CoV-2, RNA, NAAT NEGATIVE SARS CoV-2 NEGATIVE Group A Streptococcus Rapid negative NEGATIVE Urine Color COLORLESS YELLOW Urine Appearance CLEAR CLEAR Urine pH 6.5 5.0-8.0 Urine Specific [place] 1.005 1.001-1.031 Urine Protein NEGATIVE NEGATIVE mg/dL Urine Glucose (UA) NEGATIVE NEGATIVE mg/dL Urine Ketones NEGATIVE NEGATIVE mg/dL Urine Occult Blood NEGATIVE NEGATIVE Urine Nitrate NEGATIVE NEGATIVE Urine Bilirubin NEGATIVE NEGATIVE mg/dL Urine Urobilinogen 0.2 0.2-1.0 mg/dL Urine Leukocyte Esterase NEGATIVE NEGATIVE [place]/uL Current Medications Medications (Trade) Dose Ordered Sig/Romero Route PRN Reason Start Time Stop Time Status Last Admin Dose Admin Albuterol (DUOneb) 1 udvial Q6H PRN IH SHORTNESS OF BREATH 09/30/24 18:30 10/30/24 18:29 10/02/24 10:45 1 UDVIAL Amlodipine Besylate (NorvASC 5MG TAB) 10 mg DAILY PO 10/01/24 09:00 10/31/24 08:59 Aspirin (Aspirin 81mg Chew Tab) 81 mg DAILY PO 10/01/24 09:00 10/31/24 08:59 Budesonide (Pulmicort 0.5 Mg/2ml) 0.5 mg BIDRESP IH 09/30/24 18:30 10/30/24 18:29 10/02/24 06:43 0.5 MG Ceftriaxone Sodium (Rocephin 2gm Inj) 2 gm Q24H IVPB 09/30/24 18:30 10/10/24 18:29 10/01/24 19:09 2 GM Cetirizine HCl (ZYRtec 5 MG TABLET) 10 mg DAILY PO 10/01/24 14:30 10/31/24 14:29 10/01/24 14:42 10 MG Clopidogrel Bisulfate (plaVIX 75MG) 75 mg DAILY PO 10/01/24 09:00 10/31/24 08:59 Doxycycline Hyclate 250 ml @ 125 mls/hr Q12H IV 09/30/24 20:00 10/10/24 19:59 10/02/24 09:21 125 MLS/HR Enoxaparin Sodium (Lovenox) 30 mg HS SQ 10/01/24 21:00 10/31/24 20:59 10/01/24 20:58 30 MG Fluticasone Propionate (FLOnase 50 mcg/ spray 16g bottle) 2 SPRAYS HS EN 10/02/24 21:00 10/31/24 20:59 Fluticasone Propionate (FLOnase 50 mcg/ spray 16g bottle) 2 sprays HS EN 10/01/24 21:00 10/02/24 07:07 DC 10/01/24 20:57 2 SPRAYS Guaifenesin/ Dextromethorphan (RobiTUSSin DM 200/20MG 10ML) 10 ml Q6H PRN PO COUGH 09/30/24 18:30 09/30/24 19:45 DC Guaifenesin/ Dextromethorphan (RobiTUSSin DM 200/20MG 10ML) 10 ml Q6H PRN PO COUGH 09/30/24 20:00 10/30/24 19:59 Hydralazine HCl (APRESOLine 20MG INJ) 5 mg Q6H PRN IV ADMINISTER FOR SBP > 160 09/30/24 18:30 10/30/24 18:29 Montelukast Sodium (SinguLAIR) 10 mg HS PO 10/01/24 21:00 10/31/24 20:59 10/01/24 20:57 10 MG Pantoprazole Sodium (PROTonix 40MG TAB) 40 mg Q24H PO 09/30/24 18:30 10/30/24 18:29 10/01/24 19:09 40 MG Sodium Chloride 1,000 ml @ 80 mls/hr [id number] IV 09/30/24 18:00 10/01/24 10:25 DC 10/01/24 06:34 80 MLS/HR DIAGNOSTICS / RADIOLOGY: [ ] ASSESSMENT: Bilateral multifocal community-acquired pneumonia, POA Nonresolving acute bronchitis, POA Allergic rhinitis, POA Failure of outpatient antibiotic therapy, POA Recrudescence of stroke symptoms secondary to underlying pneumonia, POA Prior history of right cerebellar CVA, PO, 06/2024 History of left vertebral artery stenosis, 06/2024, per Dr. Rosales interpretation, POA Uncontrolled Hypertension, POA Hyperlipidemia, POA dual antiplatelet and statin therapy as outpatient, POA PLAN: Cardiac telemetry floor admission CT chest on further evaluation shows bibasilar bilateral lobe community-acquired pneumonia, Continue IV Rocephin and doxycycline Pending respiratory cultures Flu and COVID are negative vitals were noted to be negative Avoid any episodes of hypotension given underlying history of left vertebral artery stenosis Continue heart healthy diet Reviewed MRI brain, ruled out acute CVA, patient's case was discussed with Dr. Rosales with Neurology , signing off Continue antiplatelet therapy with aspirin and Plavix Continue statin therapy Following asbestos cement sheet supervisor's recommendations 10/02/2024 chest x-ray platelike atelectasis in both lungs bases Continue IS hourly as tolerated Continue CPT with DuoNebs Monitoring replace electrolytes Physical therapy on the catalytic case operator a.m. labs PRN Treatment - Add when necessary meds for nausea, vomiting, pain, constipation, insomnia. DVT/GI prophylaxis- Continue Lovenox and Protonix at current doses. Full CODE STATUS ATTESTATION BY PHYSICIAN I have seen and examined the patient. I reviewed the documentation, medical decision making, and treatment plan as noted by the mid-level provider above. I agree with the findings and plan of care. Robert Zuniga IV, MD, KATARZYNA B NAIL WELTER Oct 02, 2024 14:38
[2024-10-02] MEDS ORDERED: mecliZINE HCL 25 MG TABLET PO PRN (15:00)
--- NOTE | 2024-10-02 18:42 | PN ---
[facility] PROGRESS NOTE Date Patient Seen: Oct 02, 2024 Time of Visit: 12:36 Supervising Physician: DR. CHERRIE PARDO Primary Care Physician: [ ] Outpatient Specialists: [ ] Inpatient Consults: [ ] BIS, neurology PROBLEM LIST: Bilateral multifocal community-acquired pneumonia, POA Nonresolving acute bronchitis, POA Failure of outpatient antibiotic therapy, POA Recrudescence of stroke symptoms secondary to underlying pneumonia, POA Prior history of right cerebellar CVA, PO, 06/2024 History of left vertebral artery stenosis, 06/2024, per Dr. Rosales interpretation, POA Hypertension, POA Hyperlipidemia, POA History of dual antiplatelet therapy as outpatient, POA INTERVAL HISTORY: 10/02/24 Patient is a a 49 year old awake, alert, well oriented who has failed outpatient antibiotic therapy admitted for further evaluation and treatment due to multifocal Pneumonia He is not in distress, continues to be on antibiotic therapy, using IS, no fever, chills, nausea or vomiting. REVIEW OF SYSTEMS: 12 point ROS reviewed with patient. Pertinent positives mentioned above. Otherwise negative. PHYSICAL EXAM: GENERAL: alert, weak, awake oriented x 3 HEENT: EOMI, Sclera non icteric, moist mucosa NECK: Supple, no JVD, trachea midline LUNGS: Clear breath sounds bilaterally. No wheezes HEART: Regular rate and rhythm. Normal S1 and S2, without murmurs ABD: Abdomen soft, nontender. Bowel sounds present EXT: No clubbing cyanosis or edema NEURO: Alert and oriented to person, follows commands Vital Signs (last 8hr) Date Time Temp Pulse Resp B/P (MAP) Pulse Ox O2 Delivery O2 Flow Rate FiO2 10/02/24 15:57 96 Room Air* 0 21 10/02/24 15:10 98.6 66 20 130/76 96 Room Air 21 10/02/24 11:24 98.1 67 20 117/75 96 Room Air 21 10/02/24 11:05 68 18 LABS: Hematology Labs: Test 10/02/24 04:06 Range/Units White Blood Count 8.1 4.8-10.8 K/uL Red Blood Count 4.25 L 4.50-6.20 MIL/uL Hemoglobin 12.9 L 14.0-18.0 g/dL Hematocrit 39.4 L 42-54 % Mean Corpuscular Volume 92.7 79-99 fL Mean Corpuscular Hemoglobin 30.4 27.0-33.0 pg Mean Corpuscular Hemoglobin Concent 32.7 32.0-36.0 g/dL Red Cell Distribution Width 13.5 11.0-15.5 % Platelet Count 299 130-400 K/uL Mean Platelet Volume 9.5 7.5-10.5 fL Immature Granulocyte % (Auto) 0.4 0-1 % Neutrophils (%) (Auto) 58.3 40.0-77.0 % Lymphocytes (%) (Auto) 29.7 21.0-51.0 % Monocytes (%) (Auto) 9.3 3.0-13.0 % Eosinophils (%) (Auto) 1.6 0.0-8.0 % Basophils (%) (Auto) 0.7 0.0-5.0 % Neutrophils # (Auto) 4.7 1.8-7.7 K/uL Lymphocytes # (Auto) 2.4 1.0-4.8 K/uL Monocytes # (Auto) 0.8 0.1-1.0 K/uL Eosinophils # (Auto) 0.13 0.00-0.70 K/uL Basophils # (Auto) 0.06 0.00-0.20 K/uL Absolute Immature Granulocyte (auto 0.03 0-1 K/uL Nucleated Red Blood Cells 0.0 0.0-0.19 % Chemistry Labs: Test 10/02/24 04:06 10/01/24 07:04 Range/Units Sodium Level 140 136-145 mmol/L Potassium Level 4.0 3.5-5.1 mmol/L Chloride Level 107 101-111 mmol/L Carbon Dioxide Level 26 21-32 mmol/L Blood Urea Nitrogen 13 7-18 mg/dL Creatinine 1.0 0.5-1.3 mg/dL Glomerular Filtration Rate Calc 92 >90 mL/min Random Glucose 85 70-105 mg/dL Total Calcium 8.3 L 8.5-10.1 mg/dL Magnesium Level 2.00 1.80-2.40 mg/dL Total Bilirubin 0.2 0.2-1.0 mg/dL Aspartate Amino Transf (AST/SGOT) 15 10-37 U/L Alanine Aminotransferase (ALT/SGPT) 38 12-78 U/L Alkaline Phosphatase 73 50-136 U/L Total Protein 6.5 6.0-8.3 g/dL Albumin 3.0 L 3.5-5.0 g/dL DIAGNOSTICS / RADIOLOGY RESULTS: CHEST 1VW REASON: pneumonia COMPARISON: 09/30/2024 FINDINGS: There is platelike atelectasis in both lung bases. Lungs are otherwise clear. Heart size is normal with no vascular congestion. There are no pleural effusions. Mediastinum and bony thorax appear unremarkable. IMPRESSION: 1. Platelike atelectasis in both lung bases. PLAN Continue Rocephin Continue doxycycline Supplemental oxygen PRN Duo nebs PRN NEURO: Minimize central acting medications as possible. Maintain fall precautions, adequate lighting during the day PULMONARY: Supplemental 02 as needed. Maintain aspiration precautions at all times CARDIOVASCULAR: Follow hemodynamics. Vital signs per facility protocol GI & NUTRITION: Continue with nutritional support. Continue stool softeners and laxatives as needed. KIDNEYS & ELECTROLYTES: Strict monitoring of intake, output and overall fluid balance. Avoid nephrotoxic medications to the extent possible. Medications to be dosed according to renal function. Monitor electrolytes and replace as needed ENDOCRINE: Maintain blood glucose between 100-180 at all times. Hypoglycemia protocol in place INFECTIOUS DISEASE: Follow cultures, deescalate antibiotics as soon as possible. Panculture if new onset fever ONCOLOGY/HEMATOLOGY/COAGULATION: Monitor for s/s of bleeding Monitor hemoglobin, coagulation studies as needed SKIN: Pressure ulcer prevention per facility protocol Specialty mattress ORTHO/REHAB: Continue PT/OT Prophylaxis: Continue GI and DVT prophylaxis Code Status: Full Resuscitation Disposition: As per attending. Other: Total patient care time exceeds 35 minutes excluding all procedures. I personally scribed for CHERRIE PARDO MD ([email or web address]) on 10/02/24 at 18:41. Electronically submitted by Margi Mills ([id number]). CHERRIE PARDO MD Oct 02, 2024 18:41
[2024-10-02] MEDS: fluTICasone proPIONate 50MCG/SPRAY 16 GM BOTTLE EN SCH (21:53)
[2024-10-03] VITALS (8 sets, daily range): BP systolic 113–135; BP diastolic 75–79; PULSE 65–80; RESP 18–20; TEMP 97.7–98.4; O2SAT 96–97
[2024-10-03 05:23] LABS: BASOPHILS # (AUTO) 0.04 K/uL (0.00-0.20); BASOPHILS % (AUTO) 0.5 % (0.0-5.0); EOSINOPHILS # (AUTO) 0.21 K/uL (0.00-0.70); EOSINOPHILS % (AUTO) 2.5 % (0.0-8.0); HEMATOCRIT 40.4 % (42-54); IMMATURE GRANULOCYTE ABSOLUTE 0.04 K/uL (0-1); LYMPHOCYTES # (AUTO) 1.9 K/uL (1.0-4.8); LYMPHOCYTES % (AUTO) 22.2 % (21.0-51.0); MEAN CORPUSCULAR HGB CONC 32.7 g/dL (32.0-36.0); MEAN CORPUSCULAR VOLUME 91.8 fL (79-99); MONOCYTES # (AUTO) 0.7 K/uL (0.1-1.0); MONOCYTES % (AUTO) 7.6 % (3.0-13.0); NEUTROPHILS # (AUTO) 5.7 K/uL (1.8-7.7); NEUTROPHILS % (AUTO) 66.7 % (40.0-77.0); PLATELET COUNT (AUTO) 278 K/uL (130-400); WHITE BLOOD COUNT (AUTO) 8.6 K/uL (4.8-10.8)
[2024-10-03 05:50] LABS: ALBUMIN 2.9 g/dL (3.5-5.0); BILIRUBIN,TOTAL 0.4 mg/dL (0.2-1.0); MAGNESIUM 1.9 mg/dL (1.80-2.40); POTASSIUM 4.2 mmol/L (3.5-5.1); TOTAL PROTEIN, SERUM 6.1 g/dL (6.0-8.3)
[2024-10-03] MEDS ORDERED: NON-FORMULARY MEDICATION 1 EACH (Amlodipine Besylate 1 TAB) PO SCH (09:00)
[2024-10-03] MEDS: ASPIRIN 81 MG EC TAB PO SCH (09:00)
[2024-10-03] MEDS: cloPIDOgrel 75MG TAB PO SCH (09:00)
[2024-10-03] MEDS: MAGNESIUM 2GM PREMIX 50ML 50 ML IV SCH (11:16)
[2024-10-03] MEDS ORDERED: PANT40TA PO (11:46)
[2024-10-03] MEDS ORDERED: AMLO5TAB4 PO (11:46)
[2024-10-03] MEDS ORDERED: DOXY100C61 PO (11:46)
[2024-10-03] MEDS ORDERED: MONT-46 PO (11:46)
[2024-10-03] MEDS ORDERED: FLUC100T12 PO (11:46)
--- NOTE | 2024-10-03 11:54 | DS ---
Discharge Summary Hospital Course Summary: DATE OF ADMISSION:[09/30/2024] DATE OF DISCHARGE:[10/02/2024] DISPOSITION:[Home] CONDITION:[Medically stable] CONSULTANTS:[Data Review Specialist, neurologist] FOLLOW UP APPOINTMENTS:[PCP 2 to 3 days. Data Review Specialist 1 to 2 weeks. Neurologist as needed] PROCEDURES:[None] IMAGING: report attached to summary MICROBIOLOGY: report attached to summary ACTIVITY:[Requires one-person assist] HOME MEDICATIONS: see [facility] NEW MEDICATIONS:[Prescription was written for cetirizine 10 mg tablet p.o. daily, fluconazole 50 mcg one bottle of spray. Otherwise amlodipine, doxycycline, fluconazole, montelukast, pantoprazole was sent through the computer to the pharmacy on file] EMERGENCY INSTRUCTIONS: The patient was instructed to present to the nearest Emergency departmentr or call 911 once their symptoms will return or worsen Testing Lead(s): Patient is 49 years old male with a past medical history of of essential hypertension, hyperlipidemia, history of right cerebellar stroke on 06/2024, history of left vertebral artery stenosis was admitted to the cardiac telemetry floor with diagnosis of bilateral multifocal community-acquired pneumonia, none resolving acute bronchitis, failure of outpatient antibiotic therapy and recrudescence of stroke symptoms. Throughout the hospitalization patient underwent head CT which was negative brain MRI negative. Neurologist was consulted secondary to patient's prior CVA and dizziness. From Neurology standpoint patient is stable, signing off. Data Review Specialist was also consulted for pneumonia that showed on a chest CT and chest x-ray. Sputum microbiology final grew Laura albicans. Final urine culture negative. Patient was cleared by receiving worker to be discharged home follow up outpatient within 1 to 2 weeks. We also recommend that patient follow up with primary care provider within three days. Follow up with neurologist as needed. Procedure(s): REVIEW OF SYSTEMS: CONSTITUTIONAL: Denies fevers, chills, or night sweats. No unintentional weight loss reported. NEUROLOGICAL: Denies headache, amaurosis fugax, motor weakness, sensory deficit, vertigo/spinning sensation, gait abnormalities, or tremors. ENT: No hearing loss, otalgia, otorrhea, rhinitis, rhinorrhea, hoarseness, or sore throat. CARDIOVASCULAR: Denies any exertional angina, dyspnea on exertion, orthopnea, paroxysmal nocturnal dyspnea, palpitations, life-threatening arrhythmias, claudication. PULMONARY: mild cough which has improved from the previous day. Denies any shortness of breath SLEEP: Denies morning headaches, daytime somnolence or napping. Denies difficulty falling asleep, staying asleep, waking from sleep. Denies knowledge of snoring. GASTROINTESTINAL: Denies any type of dysphagia to either liquids or solids. Denies nausea, vomiting, pyrosis, early satiety, abdominal pain, diarrhea, constipation, or changes in stool consistency or caliber. Denies coffee-ground emesis, hematemesis, hematochezia, or melanotic stools. GENITOURINARY: Denies frequency, urgency, nocturia, hematuria or incontinence (Storage/Irritative symptoms.) Low urinary stream, straining to void, urinary intermittency or hesitancy, splitting of the voiding stream, terminal dribbling. ENDOCRINOLOGIC: Denies polyuria, polydipsia, polyphagia or heat/cold intolerances. HEMATOLOGIC: Denies thrombophilia/previous clots, or coagulopathy/bleeding disorders. ONCOLOGIC: Denies personal history of malignancy. DERMATOLOGIC: Denies rashes or pruritus. PSYCHIATRIC: Denies any suicidal or homicidal ideation. Denies hallucinations. Assessment/Plan: ASSESSMENT: Bilateral multifocal community-acquired pneumonia, POA Sputum culture growing Laura albicans Nonresolving acute bronchitis, POA Allergic rhinitis, POA Failure of outpatient antibiotic therapy, POA Recrudescence of stroke symptoms secondary to underlying pneumonia, POA Prior history of right cerebellar CVA, PO, 06/2024 History of left vertebral artery stenosis, 06/2024, per Dr. Rosales interpretation, POA Uncontrolled Hypertension, POA Hyperlipidemia, POA dual antiplatelet and statin therapy as outpatient, POA Home Medications: Active Scripts Amlodipine Besylate (Amlodipine Besylate) 10 Mg Tablet, 1 TAB PO DAILY for 30 Days, #30 TAB 0 Refills Prov:RYLAND GARCIA MOLECULAR BIOLOGY SCIENTIST 07/09/24 Lisinopril (Lisinopril) 20 Mg Tablet, 1 TAB PO HS for 30 Days, #30 TAB 0 Refills Prov:RYLAND GARCIA MOLECULAR BIOLOGY SCIENTIST 07/09/24 Atorvastatin Calcium (LIPITOR) 80 Mg Tablet, 1 TAB PO HS for 90 Days, #90 TAB 0 Refills Prov:RYLAND GARCIA MOLECULAR BIOLOGY SCIENTIST 11/24/24 Aspirin (Aspirin EC) 81 Mg Tablet.dr, 1 TAB PO DAILY for 90 Days, #90 TAB 0 Refills Prov:GARCIARYLAND Hester MOLECULAR BIOLOGY SCIENTIST 07/09/24 Clopidogrel Bisulfate (Plavix) 75 Mg Tablet, 1 TAB PO DAILY for 90 Days, #90 TAB 0 Refills Prov:GARCIARYLAND Hester MOLECULAR BIOLOGY SCIENTIST 07/09/24 Reported Medications Meclizine HCl (Meclizine HCl) 12.5 Mg Tablet, 25 MG PO TIDP for dizziness, TAB 07/08/24 Discontinued Reported Medications Ondansetron (Ondansetron Odt) 4 Mg Tab.rapdis, 1 TAB PO Q4HPRN PRN for nausea/vomiting for 4 Days, #16 TAB 0 Refills 07/08/24 Discontinued Scripts Amoxicillin/Potassium Clav (Amox Tr-K Clv 875-125 mg Tab) 875 Mg-125 Mg Tablet, 1 TAB PO BID for 7 Days, #14 TAB 0 Refills Prov:RYLAND GARCIA [facility] 07/09/24 Time spent arranging discharge: 31-60 minutes ATTESTATION BY PHYSICIAN I have seen and examined the patient. I reviewed the documentation, medical decision making, and treatment plan as noted by the mid-level provider above. I agree with the findings and plan of care. Robert Zuniga IV, MD, KATARZYNA B HR ADMINISTRATOR Oct 03, 2024 11:54
--- NOTE | 2024-10-03 13:42 | PN ---
[facility] PROGRESS NOTE Date Patient Seen: Oct 03, 2024 Time of Visit: 13:42 Supervising Physician: Dr. Humberto Chase Primary Care Physician: [ ] Outpatient Specialists: [ ] Inpatient Consults: [ ] BIS, neurology PROBLEM LIST: Bilateral multifocal community-acquired pneumonia, POA Nonresolving acute bronchitis, POA Failure of outpatient antibiotic therapy, POA Recrudescence of stroke symptoms secondary to underlying pneumonia, POA Prior history of right cerebellar CVA, PO, 06/2024 History of left vertebral artery stenosis, 06/2024, per Dr. Rosales interpretation, POA Hypertension, POA Hyperlipidemia, POA History of dual antiplatelet therapy as outpatient, POA INTERVAL HISTORY: Patient evaluated at bedside today, sputum cultures returned positive for Laura albicans. Patient is currently on room air, denies any shortness of breath, no cough or expectoration. Patient has no chest pain, denies any nausea or vomiting. Tolerating his diet well. Have spoken to primary team patient was cleared to discharge from a pulmonary perspective with a treatment course of Diflucan. Patient has recent history of CVA for which he is on light duty at work, which according to the patient's history is likely where he contracted the illness, advised primary team that it was in the patient's best interest to allow 1-2 days recovery at home prior to him returning to work and remain on light duty. Patient was advised of the current treatment plan and he is in agreement. REVIEW OF SYSTEMS: 12 point ROS reviewed with patient. Pertinent positives mentioned above. Otherwise negative. PHYSICAL EXAM: GENERAL: alert, weak, awake oriented x 3 HEENT: EOMI, Sclera non icteric, moist mucosa NECK: Supple, no JVD, trachea midline LUNGS: Clear breath sounds bilaterally. No wheezes HEART: Regular rate and rhythm. Normal S1 and S2, without murmurs ABD: Abdomen soft, nontender. Bowel sounds present EXT: No clubbing cyanosis or edema NEURO: Alert and oriented to person, follows commands Vital Signs (last 8hr) Date Time Temp Pulse Resp B/P (MAP) Pulse Ox O2 Delivery O2 Flow Rate FiO2 10/03/24 11:05 98.4 71 20 128/77 97 Room Air 10/03/24 11:01 74 18 10/03/24 08:19 75 18 N/A Room Air 10/03/24 07:10 98.2 80 20 135/79 100 Room Air 21 10/03/24 06:43 73 18 LABS: Hematology Labs: Test 10/03/24 05:02 Range/Units White Blood Count 8.6 4.8-10.8 K/uL Red Blood Count 4.40 L 4.50-6.20 MIL/uL Hemoglobin 13.2 L 14.0-18.0 g/dL Hematocrit 40.4 L 42-54 % Mean Corpuscular Volume 91.8 79-99 fL Mean Corpuscular Hemoglobin 30.0 27.0-33.0 pg Mean Corpuscular Hemoglobin Concent 32.7 32.0-36.0 g/dL Red Cell Distribution Width 13.0 11.0-15.5 % Platelet Count 278 130-400 K/uL Mean Platelet Volume 9.0 7.5-10.5 fL Immature Granulocyte % (Auto) 0.5 0-1 % Neutrophils (%) (Auto) 66.7 40.0-77.0 % Lymphocytes (%) (Auto) 22.2 21.0-51.0 % Monocytes (%) (Auto) 7.6 3.0-13.0 % Eosinophils (%) (Auto) 2.5 0.0-8.0 % Basophils (%) (Auto) 0.5 0.0-5.0 % Neutrophils # (Auto) 5.7 1.8-7.7 K/uL Lymphocytes # (Auto) 1.9 1.0-4.8 K/uL Monocytes # (Auto) 0.7 0.1-1.0 K/uL Eosinophils # (Auto) 0.21 0.00-0.70 K/uL Basophils # (Auto) 0.04 0.00-0.20 K/uL Absolute Immature Granulocyte (auto 0.04 0-1 K/uL Nucleated Red Blood Cells 0.0 0.0-0.19 % Chemistry Labs: Test 10/03/24 05:02 Range/Units Sodium Level 140 136-145 mmol/L Potassium Level 4.2 3.5-5.1 mmol/L Chloride Level 108 101-111 mmol/L Carbon Dioxide Level 27 21-32 mmol/L Blood Urea Nitrogen 12 7-18 mg/dL Creatinine 1.0 0.5-1.3 mg/dL Glomerular Filtration Rate Calc 92 >90 mL/min Random Glucose 84 70-105 mg/dL Total Calcium 8.7 8.5-10.1 mg/dL Magnesium Level 1.90 1.80-2.40 mg/dL Total Bilirubin 0.4 0.2-1.0 mg/dL Aspartate Amino Transf (AST/SGOT) 16 10-37 U/L Alanine Aminotransferase (ALT/SGPT) 37 12-78 U/L Alkaline Phosphatase 66 50-136 U/L Total Protein 6.1 6.0-8.3 g/dL Albumin 2.9 L 3.5-5.0 g/dL DIAGNOSTICS / RADIOLOGY RESULTS: [ ] PLAN Continue Rocephin Continue doxycycline Supplemental oxygen PRN Duo nebs PRN NEURO: Minimize central acting medications as possible. Maintain fall precautions, adequate lighting during the day PULMONARY: Supplemental 02 as needed. Maintain aspiration precautions at all times CARDIOVASCULAR: Follow hemodynamics. Vital signs per facility protocol GI & NUTRITION: Continue with nutritional support. Continue stool softeners and laxatives as needed. KIDNEYS & ELECTROLYTES: Strict monitoring of intake, output and overall fluid balance. Avoid nephrotoxic medications to the extent possible. Medications to be dosed according to renal function. Monitor electrolytes and replace as needed ENDOCRINE: Maintain blood glucose between 100-180 at all times. Hypoglycemia protocol in place INFECTIOUS DISEASE: Follow cultures, deescalate antibiotics as soon as possible. Panculture if new onset fever ONCOLOGY/HEMATOLOGY/COAGULATION: Monitor for s/s of bleeding Monitor hemoglobin, coagulation studies as needed SKIN: Pressure ulcer prevention per facility protocol Specialty mattress ORTHO/REHAB: Continue PT/OT Prophylaxis: Continue GI and DVT prophylaxis Code Status: Full Resuscitation Disposition: As per attending. Other: Total patient care time exceeds 35 minutes excluding all procedures. ANDRE NUNEZ Oct 03, 2024 13:42
[2024-10-03 15:14] LABS: CHLAM.PNEUMONIAE IGM TITER <1:10 (Neg:<1:10)
[2024-10-04 01:09] LABS: MYCOPLASMA AB IGM <770 U/mL (0-769)
== END 2024-10-03 14:15 | disposition home or self-care (01) | DRG 202 ==
LOC: EDH 12:08 → EDHIP 17:08 → 4BH 10-01 17:45
PROVIDERS: ADMIT Internal Medicine; ATTEND Internal Medicine
DX: J20.9 Acute bronchitis, unspecified (principal); J18.9 Pneumonia, unspecified organism; B37.89 Other sites of candidiasis; E78.00 Pure hypercholesterolemia, unspecified; I10 Essential (primary) hypertension; J30.9 Allergic rhinitis, unspecified; E86.0 Dehydration; J32.0 Chronic maxillary sinusitis; F41.9 Anxiety disorder, unspecified; Z86.73 Personal history of transient ischemic attack (TIA), and cerebral infarction without residual deficits; Z82.49 Family history of ischemic heart disease and other diseases of the circulatory system
CPT/HCPCS: 36415; 70450; 70551; 71045; 71250; 80048; 80053; 81003; 82550; 83735; 83880; 84145; 84484; 85025; 85610; 85651; 85730; 86140; 86632; 86738; 87071; 87205; 87449; 87635; 87804; 87880; 93005; 94640; 94664; 94667; 94668; 96360; 99291; G0378; J0696; J1650; J3475; J3490; J7030; J7120